=== PATIENT | male | born 1975 | race Hispanic/Latino ===

== ENCOUNTER 2021-08-22 01:51 | Inpatient (IN) | payer SELFPAY ==
[2021-08-22] MEDS ORDERED: MORPHINE 4 MG/ML SYR ONE (02:33)
[2021-08-22] MEDS ORDERED: METRONIDAZOLE 500mg IVPB 500 MG/100 ML BAG IV ONE ×2 (02:33→09:17)
[2021-08-22] MEDS ORDERED: CIPROFLOXACIN 400mg IV 400 MG/200 ML BAG IV ONE ×2 (02:33→07:17)
[2021-08-22] MEDS ORDERED: ONDANSETRON 4 MG/2 ML VIAL ONE (02:34)
[2021-08-22] MEDS ORDERED: FAMOTIDINE 20 MG/2 ML VIAL IV ONE (02:34)
[2021-08-22] MEDS ORDERED: NA CHLORIDE 0.9% 1,000 ML ONE (02:34)
[2021-08-22 02:43] LABS: Urine Blood Trace-intact (Negative); Urine Glucose Negative (Negative); Urine Protein Negative (Negative); Urine pH 6.5 (5.0-7.0)
[2021-08-22 02:46] LABS: Absolute Lymphocytes (CBC) 3.3 K/uL (0.7-4.9); Hematocrit 42.1 % (39.6-49.0); Lymphocytes % 23.8 % (15.3-44.8); MPV 8.5 fL (7.6-11.3); RBC Red Blood Cell Count 4.65 M/uL (4.33-5.43)
[2021-08-22 03:04] LABS: Albumin 3.7 g/dL (3.4-5.0); Bilirubin Total 0.2 mg/dL (0.2-1.0); Potassium 3.7 mmol/L (3.5-5.1); Protein, Total 7.9 g/dL (6.4-8.2)
[2021-08-22] MEDS ORDERED: CEFTRIAXONE 2000 MG/VIAL ONE (04:20)
[2021-08-22] MEDS ORDERED: HYDROMORPHONE HCL 1 MG/ML INJ ONE ×2 (04:27→12:25)
--- NOTE | 2021-08-22 04:36 | ER ---
Nurse's Notes [facility] Name: Urban Robles Age: 46 yrs Sex: Male : 1975 Arrival Date: 08/22/2021 Time: 01:52 Bed 18 Private MD: Diagnosis: Abdominal tenderness-RIGHT SIDED;Diverticulitis of intestine, part unspecified, without perforation or abscess without bleeding-ACUTE CECAL DIVERTICULITIS;Elevated white blood cell count Presentation: 08/22 02:01 Chief complaint: Patient states: he is having abdominal pain and distention x 1 week pt bb denies vomiting or diarrhea. Coronavirus screen: At this time, the client does not indicate any symptoms associated with coronavirus-19. Ebola Screen: No symptoms or risks identified at this time. Initial Sepsis Screen: Does the patient meet any 2 criteria? No. Patient's initial sepsis screen is negative. Does the patient have a suspected source of infection? No. Patient's initial sepsis screen is negative. Risk Assessment: Do you want to hurt yourself or someone else? Patient reports no desire to harm self or others. Onset of symptoms was August 15, 2021. 02:01 Method Of Arrival: Ambulatory bb 02:01 Acuity: GUSTAVO 3 bb Historical: - Allergies: 02:03 No Known Allergies; bb - Home Meds: 02:03 None [Active]; bb - PMHx: 02:03 None; bb - PSHx: 02:03 Appendectomy; bb - Immunization history:: Client reports receiving the 2nd dose of the Covid vaccine, does not know which vaccine he received. - Social history:: Smoking status: Patient reports the use of cigarette tobacco products, Patient/guardian denies using alcohol. - Family history:: not pertinent. Screenin:12 Abuse screen: Denies threats or abuse. Denies injuries from another. Nutritional lg3 screening: No deficits noted. Tuberculosis screening: No symptoms or risk factors identified. Fall Risk None identified. Assessment: 03:12 General: Appears in no apparent distress. uncomfortable, Behavior is calm, cooperative. lg3 Pain: Complains of pain in right lower quadrant and right upper quadrant Pain radiates to epigastric area. Neuro: No deficits noted. Level of Consciousness is awake, alert, obeys commands, Oriented to person, place, time, situation. Cardiovascular: No deficits noted. Denies chest pain, shortness of breath, Capillary refill < 3 seconds Clubbing of nail beds is absent JVD is absent Patient's skin is warm and dry. Respiratory: No deficits noted. Airway is patent Trachea midline Respiratory effort is even, unlabored, Respiratory pattern is regular, symmetrical. GI: Bowel sounds hyperactive in right upper quadrant, left upper quadrant, right lower quadrant and left lower quadrant Abd is soft X 4 quads Abdomen is tender to palpation in right upper quadrant and right lower quadrant Reports lower abdominal pain, upper abdominal pain, bloating, cramping, epigastric pain. : No deficits noted. No signs and/or symptoms were reported regarding the genitourinary system. EENT: No deficits noted. No signs and/or symptoms were reported regarding the EENT system. Derm: No deficits noted. No signs and/or symptoms reported regarding the dermatologic system. Skin is intact, is healthy with good turgor, Skin is dry, Skin is pink, warm \\T\\ dry. Musculoskeletal: No deficits noted. No signs and/or symptoms reported regarding the musculoskeletal system. Circulation, motion, and sensation intact. Range of motion: intact in all extremities. 04:09 Reassessment: Patient appears in no apparent distress at this time. No changes from lg3 previously documented assessment. Patient and/or family updated on plan of care and expected duration. Pain level reassessed. Patient is alert, oriented x 3, equal unlabored respirations, skin warm/dry/pink. Patient states symptoms have improved. 05:35 Reassessment: Patient appears in no apparent distress at this time. No changes from lg3 previously documented assessment. 06:57 Reassessment: Patient appears in no apparent distress at this time. No changes from lg3 previously documented assessment. Patient and/or family updated on plan of care and expected duration. Pain level reassessed. Patient is alert, oriented x 3, equal unlabored respirations, skin warm/dry/pink. pt quietly resting with family at bedside. Vital Signs: 02:01 BP 127 / 89; Pulse 79; Resp 18 S; Temp 97.6(O); Pulse Ox 95% on R/A; Weight 113.4 kg bb (R); Height 5 ft. 3 in. (160.02 cm) (R); Pain 10/10; 03:12 BP 126 / 78; Pulse 82; Resp 17 S; Pulse Ox 98% on R/A; lg3 04:10 BP 124 / 79; Pulse 80; Resp 16; Pulse Ox 98% on R/A; lg3 02:01 Body Mass Index 44.29 (113.40 kg, 160.02 cm) ED Course: 01:52 Patient arrived in ED. mr 01:58 Minh Brooks MD is Attending Physician. [facility] 02:03 Triage completed. bb 02:03 Arm band placed on Patient placed in an exam room, on a stretcher, on pulse oximetry. bb Family accompanied patient. 02:19 Ana M Tinajero, RN is Primary Nurse. lg3 02:27 CBC with Diff Sent. mw2 02:27 CMP Sent. mw2 02:27 Lipase Sent. mw2 02:27 Inserted saline lock: 20 gauge in right antecubital area, using aseptic technique. sm5 Blood collected. 02:44 Urine Culture Sent. lg3 02:49 CBC with Diff Sent. lg3 02:49 CMP Sent. lg3 02:49 Lipase Sent. lg3 02:58 Abdomen Limited US In Process Unspecified. EDMS 03:00 Chest Single View XRAY In Process Unspecified. EDMS 03:12 Patient has correct armband on for positive identification. Bed in low position. Call lg3 light in reach. Side rails up X 1. Pulse ox on. NIBP on. Door closed. Noise minimized. Warm blanket given. Turned to right side. Family accompanied patient. 03:44 CT Abd/Pelvis - IV Contrast Only In Process Unspecified. EDMS 04:34 Jaime Fay MD is Hospitalizing Provider. [facility] 04:48 COVID-19/FLU A+B (Document "Date of Onset" if Symptomatic) Sent. lg3 Administered Medications: 02:44 Drug: morphine 4 mg Route: IVP; Site: right antecubital; lg3 02:45 Follow up: Response: No adverse reaction; RASS: Alert and Calm (0) lg3 02:44 Drug: Flagyl (metroNIDAZOLE) 500 mg Volume: 100 ml; Route: IVPB; Rate: 200 ml/hr; lg3 Infused Over: 30 mins; Site: right antecubital; 02:44 Follow up: Response: No adverse reaction; IV Status: Completed infusion; IV Intake: lg3 100ml 02:49 Drug: Pepcid (famotidine) 20 mg Route: IVP; Site: right antecubital; lg3 02:49 Follow up: Response: No adverse reaction lg3 02:49 Drug: Zofran (Ondansetron) 4 mg Route: IVP; Site: right antecubital; lg3 02:49 Follow up: Response: No adverse reaction lg3 03:06 Drug: Ciprofloxacin 400 mg Volume: 200 ml; Route: IVPB; Infused Over: 60 mins; Site: lg3 right antecubital; 03:34 Drug: NS 0.9% 1000 ml Route: IV; Rate: 1 bolus; Site: right antecubital; lg3 04:26 Drug: Rocephin (cefTRIAXone) 2 grams Route: IV; Rate: per protocol; Site: right lg3 antecubital; 06:58 Follow up: Response: No adverse reaction; IV Status: Completed infusion; IV Intake: 05cpck1 04:26 Drug: Dilaudid (HYDROmorphone) 1 mg Route: IVP; Site: right antecubital; lg3 04:26 Follow up: Response: No adverse reaction; RASS: Alert and Calm (0) lg3 Intake: 02:44 IV: 100ml; Total: 100ml. lg3 06:58 IV: 20ml; Total: 120ml. lg3 Outcome: 04:35 Decision to Hospitalize by Provider. phu 16:32 Admitted to Med/surg accompanied by nurse, via wheelchair, room 212. ll1 16:32 Condition: stable ll1 16:32 Instructed on the need for admit. 16:33 Patient left the ED. Signatures: Dispatcher [employer] EDMS Minh Brooks MD MD cha Rivera Elaine mr Anu Bhatt RN RN bb Aditi Ruiz RN RN Dano Ding mw2 Ana M Tinajero RN RN lg3 Lacey Arteaga RN RN ll1 Justina Santa RN RN sm5 Corrections: (The following items were deleted from the chart) 04:10 03:12 BP 126 / ???; Pulse 82bpm; Resp 17bpm; Spontaneous; Pulse Ox 98% RA; lg3 lg3
--- NOTE | 2021-08-22 04:37 | EDPHYS ---
Physician Documentation [facility] Name: Urban Robles Age: 46 yrs Sex: Male : 1975 Arrival Date: 08/22/2021 Time: 01:52 Bed 18 Private MD: ED Physician Minh Brooks HPI: 08/22 02:17 This 46 yrs old Male presents to ER via Ambulatory with complaints of phu Abdominal Pain, Abdominal Swelling. 02:17 The patient presents with abdominal pain in the upper abdomen, in the right upper phu quadrant, right lower quadrant, abdominal distention in the upper abdomen, in the lower abdomen. Onset: The symptoms/episode began/occurred 3 day(s) ago. The symptoms do not radiate. Associated signs and symptoms: none. The symptoms are described as constant, crampy. Modifying factors: The symptoms are alleviated by nothing, the symptoms are aggravated by movement, pressure. Severity of pain: At its worst the pain was moderate in the emergency department the pain is unchanged. The patient has not experienced similar symptoms in the past. Historical: - Allergies: 02:03 No Known Allergies; bb - Home Meds: 02:03 None [Active]; bb - PMHx: 02:03 None; bb - PSHx: 02:03 Appendectomy; bb - Immunization history:: Client reports receiving the 2nd dose of the Covid vaccine, does not know which vaccine he received. - Social history:: Smoking status: Patient reports the use of cigarette tobacco products, Patient/guardian denies using alcohol. - Family history:: not pertinent. ROS: 02:17 Constitutional: Negative for fever, chills, and weight loss, Eyes: Negative for injury, phu pain, redness, and discharge, ENT: Negative for injury, pain, and discharge, Neck: Negative for injury, pain, and swelling, Cardiovascular: Negative for chest pain, palpitations, and edema, Respiratory: Negative for shortness of breath, cough, wheezing, and pleuritic chest pain, Back: Negative for injury and pain, : Negative for injury, bleeding, discharge, and swelling, MS/Extremity: Negative for injury and deformity, Skin: Negative for injury, rash, and discoloration, Neuro: Negative for headache, weakness, numbness, tingling, and seizure, Psych: Negative for depression, anxiety, suicide ideation, homicidal ideation, and hallucinations, Allergy/Immunology: Negative for hives, rash, and allergies, Endocrine: Negative for neck swelling, polydipsia, polyuria, polyphagia, and marked weight changes, Hematologic/Lymphatic: Negative for swollen nodes, abnormal bleeding, and unusual bruising. 02:17 Abdomen/GI: Positive for abdominal pain, of the right upper quadrant and right lower quadrant. Exam: 02:17 Constitutional: This is a well developed, well nourished patient who is awake, alert, phu and in no acute distress. Head/Face: Normocephalic, atraumatic. Eyes: Pupils equal round and reactive to light, extra-ocular motions intact. Lids and lashes normal. Conjunctiva and sclera are non-icteric and not injected. Cornea within normal limits. Periorbital areas with no swelling, redness, or edema. ENT: Nares patent. No nasal discharge, no septal abnormalities noted. Tympanic membranes are normal and external auditory canals are clear. Oropharynx with no redness, swelling, or masses, exudates, or evidence of obstruction, uvula midline. Mucous membranes moist. Neck: Trachea midline, no thyromegaly or masses palpated, and no cervical lymphadenopathy. Supple, full range of motion without nuchal rigidity, or vertebral point tenderness. No Meningismus. Chest/axilla: Normal chest wall appearance and motion. Nontender with no deformity. No lesions are appreciated. Cardiovascular: Regular rate and rhythm with a normal S1 and S2. No gallops, murmurs, or rubs. Normal PMI, no JVD. No pulse deficits. Respiratory: Lungs have equal breath sounds bilaterally, clear to auscultation and percussion. No rales, rhonchi or wheezes noted. No increased work of breathing, no retractions or nasal flaring. Back: No spinal tenderness. No costovertebral tenderness. Full range of motion. Male : Normal genitalia with no discharge or lesions. Skin: Warm, dry with normal turgor. Normal color with no rashes, no lesions, and no evidence of cellulitis. MS/ Extremity: Pulses equal, no cyanosis. Neurovascular intact. Full, normal range of motion. Neuro: Awake and alert, GCS 15, oriented to person, place, time, and situation. Cranial nerves II-XII grossly intact. Motor strength 5/5 in all extremities. Sensory grossly intact. Cerebellar exam normal. Normal gait. Psych: Awake, alert, with orientation to person, place and time. Behavior, mood, and affect are within normal limits. 02:17 Abdomen/GI: Inspection: distension, that is mild, Bowel sounds: normal, Palpation: mild abdominal tenderness, moderate abdominal tenderness, in the right upper quadrant and right lower quadrant, Liver: no appreciated palpable abnormalities, Hernia: not appreciated. Vital Signs: 02:01 BP 127 / 89; Pulse 79; Resp 18 S; Temp 97.6(O); Pulse Ox 95% on R/A; Weight 113.4 kg bb (R); Height 5 ft. 3 in. (160.02 cm) (R); Pain 10/10; 03:12 BP 126 / 78; Pulse 82; Resp 17 S; Pulse Ox 98% on R/A; lg3 04:10 BP 124 / 79; Pulse 80; Resp 16; Pulse Ox 98% on R/A; lg3 02:01 Body Mass Index 44.29 (113.40 kg, 160.02 cm) MDM: 01:58 Patient medically screened. [facility] 02:20 Differential diagnosis: cholecystitis, Cholelithiasis, diverticulitis, gastritis, phu non-specific abd pain, pancreatitis, Peptic Ulcer Disease, Perf. Duodenal Ulcer, Pyelonephritis, Ureterolithiasis, urinary tract infection. Data reviewed: vital signs, nurses notes, lab test result(s), radiologic studies, CT scan, plain films. Data interpreted: classroom monitor: rate is 79 beats/min, rhythm is regular, Pulse oximetry: on room air is 95 %. Test interpretation: by ED physician or midlevel provider: plain radiologic studies. Counseling: I had a detailed discussion with the patient and/or guardian regarding: the historical points, exam findings, and any diagnostic results supporting the discharge/admit diagnosis, lab results, radiology results. 08/22 02:17 Order name: CBC with Diff; Complete Time: 02:54 phu 08/22 02:17 Order name: CMP; Complete Time: 03:08 phu 08/22 02:17 Order name: Lipase; Complete Time: 03:08 phu 08/22 02:17 Order name: Urine Culture phu 08/22 02:43 Order name: Urine Dipstick-Ancillary; Complete Time: 02:54 EDMS 08/22 04:39 Order name: COVID-19/FLU A+B (Document "Date of Onset" if Symptomatic); Complete Time: lg3 06:04 08/22 02:17 Order name: Abdomen Limited US [facility] 08/22 02:17 Order name: CT Abd/Pelvis - IV Contrast Only [facility] 08/22 02:17 Order name: Chest Single View XRAY [facility] 08/22 02:17 Order name: IV Saline Lock; Complete Time: 02: [facility] 08/22 02:17 Order name: Labs collected and sent; Complete Time: 02: [facility] 08/22 02:17 Order name: Urine Dipstick-Ancillary (obtain specimen); Complete Time: 02:44 [facility] Administered Medications: 02:44 Drug: morphine 4 mg Route: IVP; Site: right antecubital; lg3 02:45 Follow up: Response: No adverse reaction; RASS: Alert and Calm (0) lg3 02:44 Drug: Flagyl (metroNIDAZOLE) 500 mg Volume: 100 ml; Route: IVPB; Rate: 200 ml/hr; lg3 Infused Over: 30 mins; Site: right antecubital; 02:44 Follow up: Response: No adverse reaction; IV Status: Completed infusion; IV Intake: lg3 100ml 02:49 Drug: Pepcid (famotidine) 20 mg Route: IVP; Site: right antecubital; lg3 02:49 Follow up: Response: No adverse reaction lg3 02:49 Drug: Zofran (Ondansetron) 4 mg Route: IVP; Site: right antecubital; lg3 02:49 Follow up: Response: No adverse reaction lg3 03:06 Drug: Ciprofloxacin 400 mg Volume: 200 ml; Route: IVPB; Infused Over: 60 mins; Site: lg3 right antecubital; 03:34 Drug: NS 0.9% 1000 ml Route: IV; Rate: 1 bolus; Site: right antecubital; lg3 04:26 Drug: Rocephin (cefTRIAXone) 2 grams Route: IV; Rate: per protocol; Site: right lg3 antecubital; 06:58 Follow up: Response: No adverse reaction; IV Status: Completed infusion; IV Intake: [id number] 04:26 Drug: Dilaudid (HYDROmorphone) 1 mg Route: IVP; Site: right antecubital; lg3 04:26 Follow up: Response: No adverse reaction; RASS: Alert and Calm (0) lg3 Disposition Summary: 08/22/21 04:35 Hospitalization Ordered Hospitalization Status: Inpatient Admission phu Provider: Jaime Fay cha Condition: Fair phu Problem: new phu Symptoms: have improved phu Bed/Room Type: Standard phu Location: Telemetry/MedSurg (Inpatient)(08/22/21 13:41) bd Room Assignment: 212(08/22/21 13:41) bd Diagnosis - Abdominal tenderness - RIGHT SIDED phu - Diverticulitis of intestine, part unspecified, without perforation or abscess phu without bleeding - ACUTE CECAL DIVERTICULITIS - Elevated white blood cell count phu Discharge Instructions: - Discharge Summary Sheet ph Forms: - Medication Reconciliation Form phu - SBAR form phu - Family Work Release ph Signatures: Dispatcher [employer] EDLinda Haines Martha, RN RN mw Anderson, Corey, MD MD cha Ballard, Brenda, RN RN bb Attema, Lee, MID TEACHER-C MID TEACHER-Cla1 Ana M Tinajero RN RN lg3 Corrections: (The following items were deleted from the chart) 05:45 04:35 Telemetry/MedSurg (Inpatient) phu mw 05:45 04:35 phu mw 13:41 05:45 BR ER HOLD mw bd 13:41 05:45 ERHOLD- mw bd
--- NOTE | 2021-08-22 04:50 | P.HP ---
Certification for Inpatient Patient admitted to: Inpatient With expected LOS: >2 Midnights Patient will require the following post-hospital care: None Practitioner: I am a practitioner with admitting privileges, knowledge of patient current condition, hospital course, and medical plan of care. Services: Services provided to patient in accordance with Admission requirements found in Title 42 Section 412.3 of the Code of Federal Regulations <FarrahSyd Aden - Last Filed: 08/22/21 04:47> Patient History Date of Service: 08/22/21 Reason for admission: Acute diverticulitis History of Present Illness: 46-year-old male with no significant past medical history presents emergency department with 1 week of right upper/lower abdominal pain. Patient was evaluated the emergency department his labs were significant for a moderate leukocytosis and CT revealed acute cecal diverticulitis. Patient with significant abdominal tenderness on exam requiring multiple rounds of IV pain medications ED provider wishes to admit for further evaluation and management of acute cecal diverticulitis. - Past Medical/Surgical History Past Medical History: Patient denies medical history -: Appendectomy Psychosocial/ Personal History: Patient lives at home with his family - Family History Family History: Reviewed- Non-Contributory - Social History Smoking Status: Never smoker Alcohol use: No CD- Drugs: No Caffeine use: Yes Place of Residence: Home <Syd Yan - Last Filed: 08/22/21 04:47> Date of Service: 08/22/21 <Jaime Fay - Last Filed: 08/22/21 17:58> Review of Systems 10-point ROS is otherwise unremarkable Gastrointestinal: Abdominal Pain <Syd Yan - Last Filed: 08/22/21 04:47> Physical Examination - Physical Exam General: Alert, In no apparent distress, Oriented x3 HEENT: Atraumatic, PERRLA, Mucous membr. moist/pink, EOMI, Sclerae nonicteric Neck: Supple, 2+ carotid pulse no bruit, No LAD, Without JVD or thyroid abnormality Respiratory: Clear to auscultation bilaterally, Normal air movement Cardiovascular: Regular rate/rhythm, Normal S1 S2 Gastrointestinal: Normal bowel sounds, Tenderness (Moderate right upper and lower quadrant abdominal tenderness) Musculoskeletal: No tenderness Integumentary: No rashes Neurological: Normal gait, Normal speech, Normal strength at 5/5 x4 extr, Normal tone, Normal affect Lymphatics: No axilla or inguinal lymphadenopathy - Studies Laboratory Data (last 24 hrs) 08/22/21 02:26: Sodium 138, Potassium 3.7, BUN 17, Creatinine 0.97, Glucose 107 H, Total Bilirubin 0.2, AST 20, ALT 57, Alkaline Phosphatase 107, Lipase 130 08/22/21 02:26: WBC 13.8 H, Hgb 14.6, Hct 42.1, Plt Count 324 <Syd Yan - Last Filed: 08/22/21 04:47> - Studies Laboratory Data (last 24 hrs) 08/22/21 02:26: Sodium 138, Potassium 3.7, BUN 17, Creatinine 0.97, Glucose 107 H, Total Bilirubin 0.2, AST 20, ALT 57, Alkaline Phosphatase 107, Lipase 130 08/22/21 02:26: WBC 13.8 H, Hgb 14.6, Hct 42.1, Plt Count 324 <Jaime Fay - Last Filed: 08/22/21 17:58> Assessment and Plan - Plan Assessment: Acute cecal diverticulitis without perforation, hemorrhage or abscess Plan: Acute cecal diverticulitis without perforation, hemorrhage or abscess: Continue IV antibiotics, n.p.o. at this time allow for bowel rest, IV fluids as needed pain medications and antiemetics. Advance diet as tolerated patient reports symptoms for 1 week so far moderate abdominal tenderness noted serial abdominal exams, consult surgery for worsening. DVT PPX: Lovenox Code status: Full Discharge Plan: Home Plan to discharge in: 72 Hours - Advance Directives Does patient have a Living Will: No Does patient have a Durable POA for Healthcare: No - Code Status/Comfort Care Code Status Assessed: Yes (Full code) Critical Care: No Time Spent Managing Pts Care (In Minutes): 55 <Syd Yan - Last Filed: 08/22/21 04:47> - Plan Patient seen and examined this morning on rounds. Abd pain slightly improved with dilaudid, still very tender. continue IV antibiotics, NPO, IVF general surgery consulted.. serial abdominal exams <Jaime Fay - Last Filed: 08/22/21 17:58>
[2021-08-22 05:48] LABS: SARS-COV-2 RT PCR NEGATIVE (NEGATIVE)
[2021-08-22] MEDS: D5 0.45 NS 1,000 ML IV SCH ×2 (07:17→16:29)
[2021-08-22] MEDS ORDERED: ONDANSETRON 4 MG/2 ML VIAL IV PRN (07:17)
[2021-08-22] MEDS: HYDROMORPHONE HCL 1 MG/ML INJ IV PRN ×4 (07:29→20:49)
[2021-08-22] MEDS: ENOXAPARIN 40 MG/0.4 ML SQ SCH (09:00)
[2021-08-22] MEDS: METRONIDAZOLE 500mg IVPB 500 MG/100 ML BAG IV SCH ×2 (09:00→16:28)
[2021-08-22] MEDS ORDERED: ENOXAPARIN 40 MG/0.4 ML SQ ONE (09:16)
--- NOTE | 2021-08-22 12:32 | RAD REPORT ---
EXAM DESCRIPTION: CT - Abdomen Pelvis W Contrast - 08/22/2021 6:57 am CLINICAL HISTORY: Abdominal pain, acute, nonlocalized COMPARISON: None. TECHNIQUE: CT ABDOMEN PELVIS WITH IV CONTRAST on 08/22/2021 2:17 AM CDT This exam was performed according to our departmental dose-optimization program, which includes autom ated exposure control, adjustment of the mA and/or kV according to patient size and/or use of iterati ve reconstruction technique. FINDINGS: Lower lungs are clear. Abdomen: Liver is fatty in attenuation. There is no biliary dilatation. Gallbladder is normal in appe arance. The pancreas and spleen are normal in appearance. The adrenal glands and kidneys are unremark able. Abdominal aorta is normal in course and caliber without aneurysm. There is no free air. There is no r etroperitoneal adenopathy. Pelvis: There are several diverticula within the cecum with inflammation surrounding an anteriorly pl aced diverticulum best seen on axial image 50. Urinary bladder is unremarkable. There is no free flui d. Appendix is normal. Skeleton: There are no acute osseous findings. No suspicious bony lesions. IMPRESSION: Acute cecal diverticulitis. Electronically signed by: Vern Estes MD 08/22/2021 4:28 AM CDT Due to temporary technical issues with the PACS/Fluency reporting system, reports are being signed by the in house radiologists without review as a courtesy to insure prompt reporting. The interpreting radiologist is fully responsible for the content of the report.
--- NOTE | 2021-08-22 12:33 | RAD REPORT ---
EXAM DESCRIPTION: RAD - Chest Single View - 08/22/2021 2:58 am CLINICAL HISTORY: 46 years, Male, ABDOMINAL DISTENTION COMPARISON: None. FINDINGS: Single view of the chest was obtained portable. No prior films are available for compariso n. The cardiomediastinal silhouette demonstrate to be unremarkable. The heart is not enlarged. The thoracic aorta is unremarkable. Costophrenic angles are sharp. No areas of consolidation or masses are seen. The rest of the soft tissue and bony structures demonstrate to be unremarkable. IMPRESSION: No acute cardiopulmonary disease. Electronically signed by: Bob Arechiga MD 08/22/2021 3:16 AM CDT Due to temporary technical issues with the PACS/Fluency reporting system, reports are being signed by the in house radiologists without review as a courtesy to insure prompt reporting. The interpreting radiologist is fully responsible for the content of the report.
--- NOTE | 2021-08-22 12:59 | RAD REPORT ---
EXAM DESCRIPTION: US - Abdomen Exam Limited - 08/22/2021 4:15 am CLINICAL HISTORY: 46 years, Male, ABD PAIN COMPARISON: None. TECHNIQUE: Utilizing a curved array transducer, real-time ultrasound evaluation of the abdominal vis cera was performed. Color Doppler imaging was used to assess vascular flow. FINDINGS: The liver, pancreas, right kidney were not imaged. The gallbladder demonstrate to be contracted. No evidence for cholelithiasis. No pericholecystic fl uid and or wall thickening was identified. Negative ultrasonographic Crenshaw sign. The common bile slick t measures 2.7 mm. No intra or extrahepatic biliary duct dilatation was identified. IMPRESSION: Contracted gallbladder without evidence of cholelithiasis. Electronically signed by: Bob Arechiga MD 08/22/2021 3:15 AM CDT Due to temporary technical issues with the PACS/Fluency reporting system, reports are being signed by the in house radiologists without review as a courtesy to insure prompt reporting. The interpreting radiologist is fully responsible for the content of the report.
[2021-08-22] MEDS ORDERED: D5 0.45 NS 1,000 ML IV ONE (16:05)
[2021-08-22 17:24] VITALS: BMI 30.2
[2021-08-23] MEDS: METRONIDAZOLE 500mg IVPB 500 MG/100 ML BAG IV SCH ×2 (00:33→08:06)
[2021-08-23] MEDS: D5 0.45 NS 1,000 ML IV SCH ×4 (00:33→23:17)
[2021-08-23 05:40] LABS: Absolute Lymphocytes (CBC) 2.1 K/uL (0.7-4.9); Hematocrit 41.4 % (39.6-49.0); Lymphocytes % 25.6 % (15.3-44.8); MPV 8.4 fL (7.6-11.3); RBC Red Blood Cell Count 4.48 M/uL (4.33-5.43)
[2021-08-23 06:00] LABS: ALT/SGPT 42 U/L (12-78); AST/SGOT 16 U/L (15-37); Albumin 3.4 g/dL (3.4-5.0); Alkaline Phosphatase 97 U/L (45-117); BUN Blood Urea Nitrogen 6 mg/dL (7-18); Bicarbonate 25 mmol/L (21-32); Bilirubin Total 0.4 mg/dL (0.2-1.0); Glucose Level 114 mg/dL (74-106); Potassium 3.6 mmol/L (3.5-5.1); Protein, Total 7.4 g/dL (6.4-8.2); Sodium Level 139 mmol/L (136-145)
--- NOTE | 2021-08-23 06:23 | P.PN ---
Date of Service: 08/23/21 Subjective: pain improved, no nausea/vomiting hungry, +flatus, no BM ROS: 10 point ROS as noted above, otherwise negative Physical exam GEN: Alert, oriented, NAD HEENT: Normal conjunctiva, sclera anicteric CV: Regular rate and rhythm, no edema Pulm: Nonlabored respirations on room air ABD: Soft, mild RLQ / lower abdominal tenderness, no rebound Neuro: Normal speech, normal affect Problem List Acute cecal diverticulitis without perforation, hemorrhage or abscess pain improving, states he is thirsty/hungry no nausea/vomiting afebrile general surgery following advance to clear liquids today continue serial abd exams possibly advance diet tomorrow VTE: lovenox Code: full Dispo: anticipate dc home in 1-2 days, pending improvement / tolerating diet Time Spent Managing Pts Care (In Minutes): 35
[2021-08-23] MEDS ORDERED: KCL 20 MEQ/100 mL IVPB 20 MEQ/100 ML BAG IV SCH (08:00)
[2021-08-23] MEDS: HYDROMORPHONE HCL 1 MG/ML INJ IV PRN (08:04)
[2021-08-23] MEDS ORDERED: POTASSIUM CL SA 10 MEQ TAB PO ONE (09:34)
[2021-08-23] MEDS: ENOXAPARIN 40 MG/0.4 ML SQ SCH (09:36)
[2021-08-23] MEDS ORDERED: ACETAMINOPHEN 500 MG TAB PO PRN (12:14)
[2021-08-23] MEDS: PIPER TAZO 3.375 GM in NA CHLORIDE 0.9% 100 ML IV SCH ×2 (12:15→20:34)
--- NOTE | 2021-08-23 18:39 | P.PN ---
Subjective Date of Service: 08/23/21 Chief Complaint: Acute diverticulitis Subjective: Improving (pain free now, passing gas, no nausea, no emesis) Physical Examination - Vital Signs Temperature: 98.2 F Blood Pressure: 108/68 Pulse: 73 Respirations: 19 Pulse Ox (%): 98 - Physical Exam General: Alert, In no apparent distress, Cooperative Gastrointestinal: Soft and benign, Non-distended, No ascites, No tenderness, No masses, No rebound, No guarding - Studies Microbiology Data (last 24 hrs): 08/22/21 02:40 Clean Catch Urine Dumas Count - Final No growth. 08/22/21 02:40 Clean Catch Urine - Final No growth. Assessment And Plan - Current Problems (Diagnosis) (1) Diverticulitis large intestine Current Visit: Yes Status: Acute Plan: - Zosyn - Serial Exams - Start clear liquid diet - ambulate - continue medical management - will need colonoscopy as outpatient, reviewed with patient and with [place] speaking staff Qualifiers: Diverticulitis bleeding: without bleeding Diverticulitis complication: without perforation or abscess Qualified Code(s): K57.32 - Diverticulitis of large intestine without perforation or abscess without bleeding
[2021-08-23 21:59] VITALS: O2SAT 97
[2021-08-24] MEDS: D5 0.45 NS 1,000 ML IV SCH (01:45)
[2021-08-24] MEDS: PIPER TAZO 3.375 GM in NA CHLORIDE 0.9% 100 ML IV SCH (04:00)
[2021-08-24 04:01] LABS: Absolute Lymphocytes (CBC) 2.5 K/uL (0.7-4.9); Hematocrit 40.7 % (39.6-49.0); Lymphocytes % 35.1 % (15.3-44.8); MPV 8.4 fL (7.6-11.3); RBC Red Blood Cell Count 4.44 M/uL (4.33-5.43)
[2021-08-24 04:17] LABS: Albumin 3.4 g/dL (3.4-5.0); Bilirubin Total 0.4 mg/dL (0.2-1.0); Potassium 3.7 mmol/L (3.5-5.1); Protein, Total 7.4 g/dL (6.4-8.2)
[2021-08-24] MEDS ORDERED: PIPERACIL/TAZO 3.375 GM VIAL IV ONE (05:11)
[2021-08-24] MEDS ORDERED: NA CHLORIDE 0.9% 100 ML ONE (05:14)
[2021-08-24] MEDS ORDERED: POTASSIUM CL SA 10 MEQ TAB PO ONE (09:00)
[2021-08-24 09:07] VITALS: BP 104/64; TEMP 98.2
[2021-08-24] MEDS: ENOXAPARIN 40 MG/0.4 ML SQ SCH (09:17)
[2021-08-24] MEDS ORDERED: AMOX/K CLAV 875 MG TAB PO SCH (10:00)
--- NOTE | 2021-08-24 20:54 | P.DS ---
Admission Date: 08/22/21 Discharge Date: 08/24/21 Disposition: ROUTINE DISCHARGE Discharge Condition: GOOD Reason for Admission: Acute diverticulitis Consultations: General Surgery - Dr. Artis Procedures: CT Abd: FINDINGS: Lower lungs are clear. Abdomen: Liver is fatty in attenuation. There is no biliary dilatation. Gallbladder is normal in appearance. The pancreas and spleen are normal in appearance. The adrenal glands and kidneys are unremarkable. Abdominal aorta is normal in course and caliber without aneurysm. There is no free air. There is no retroperitoneal adenopathy. Pelvis: There are several diverticula within the cecum with inflammation surrounding an anteriorly placed diverticulum best seen on axial image 50. Urinary bladder is unremarkable. There is no free fluid. Appendix is normal. Skeleton: There are no acute osseous findings. No suspicious bony lesions. IMPRESSION: Acute cecal diverticulitis. Problem List Acute cecal diverticulitis without perforation, hemorrhage or abscess Brief History of Present Illness: 46yo M, with no significant PMH presented to ED with ~1 week of lower abdominal pain. Evaluation in the ED noted leukocytosis and CT consistent with acute cecal diverticulitis. Hospital Course: Patient was found to have acute diverticulitis. Improved with bowel rest, IV fluids, and antibiotics. Diet was slowly advanced and on day of discharge he tolerated soft GI diet. Discharged home to complete 2 weeks of antibiotics. Follow up with Dr. Artis in ~2 weeks. Call his office to schedule appointment. You will need a colonoscopy in the near future - to arrange with Dr. Artis. Continue with mild diet, liquids / soft foods. Slowly advance as tolerated. Vital Signs/Physical Exam: Temp Pulse Resp BP Pulse Ox 98.2 F 60 18 104/64 97 08/24/21 08:00 08/24/21 08:00 08/24/21 08:00 08/24/21 08:00 08/24/21 08:00 Physical exam GEN: Alert, oriented, NAD HEENT: Normal conjunctiva, sclera anicteric CV: Regular rate and rhythm, no edema Pulm: Nonlabored respirations on room air ABD: Soft, minimal tenderness in RLQ Neuro: Normal speech, normal affect Laboratory Data at Discharge: WBC 7.2 K/uL (4.3-10.9) 08/24/21 03:37 Hgb 14.2 g/dL (13.6-17.9) 08/24/21 03:37 Hct 40.7 % (39.6-49.0) 08/24/21 03:37 Plt Count 309 K/uL (152-406) 08/24/21 03:37 Sodium 139 mmol/L (136-145) 08/24/21 03:37 Potassium 3.7 mmol/L (3.5-5.1) 08/24/21 03:37 BUN 7 mg/dL (7-18) 08/24/21 03:37 Creatinine 0.99 mg/dL (0.55-1.3) 08/24/21 03:37 Glucose 117 mg/dL (74-106) H 08/24/21 03:37 Total Bilirubin 0.4 mg/dL (0.2-1.0) 08/24/21 03:37 AST 15 U/L (15-37) 08/24/21 03:37 ALT 41 U/L (12-78) 08/24/21 03:37 Alkaline Phosphatase 96 U/L (45-117) 08/24/21 03:37 Lipase 130 U/L (73-393) 08/22/21 02:26 Home Medications: Amox/Clavulanate [Augmentin 875-125 Tab] 875 mg PO BID 12 Days #24 tab 08/24/21 Hydrocodone 5/APAP 325 [[place] 5/325] 1 tab PO Q8H PRN #10 tab 08/24/21 Ondansetron [Zofran] 4 mg PO Q6H PRN #10 tab 08/24/21 New Medications: Amox/Clavulanate [Augmentin 875-125 Tab] 875 mg PO BID 12 Days #24 tab Hydrocodone 5/APAP 325 [[place] 5/325] 1 tab PO Q8H PRN #10 tab PRN Reason: Pain Ondansetron [Zofran] 4 mg PO Q6H PRN #10 tab PRN Reason: Nausea / Vomiting Followup: Param Artis MD [ACTIVE - CAN ADMIT] - (Call to schedule appointment) Time spent managing pt's care (in minutes): 45
== END 2021-08-24 09:50 | disposition home or self-care (01) | DRG 392 ==
LOC: ER 01:51 → ERHOLD 04:44 → 2ND 16:01
PROVIDERS: ADMIT Hospitalist; ATTEND Hospitalist
DX: K57.32 Diverticulitis of large intestine without perforation or abscess without bleeding (principal); Z20.822 Contact with and (suspected) exposure to COVID-19
CPT/HCPCS: 0240U; 36415; 71045; 74177; 76705; 80053; 81003; 83690; 85025; 87086; 87088; 96365; 96366; 96375; 99285; J0696; J0744; J1170; J1650; J2405; J2543; J3480; J3490; J7030; J7799; Q9967

== ENCOUNTER 2022-09-03 03:24 | Observation (INO) | payer SELFPAY ==
[2022-09-03] MEDS ORDERED: KETOROLAC 30 MG/ML INJ ONE (04:04)
[2022-09-03] MEDS ORDERED: MORPHINE 4 MG/ML SYR ONE ×2 (04:04→06:56)
[2022-09-03] MEDS ORDERED: ASPIRIN 81 MG CHEWABLE TABLET ONE (04:04)
[2022-09-03] MEDS ORDERED: ONDANSETRON 4 MG/2 ML VIAL ONE (04:04)
[2022-09-03 04:14] LABS: Absolute Lymphocytes (CBC) 4.3 K/uL (0.7-4.9); Lymphocytes % 42.9 % (15.3-44.8); MCV 92.5 fL (80-100); MPV 8.6 fL (7.6-11.3); RBC Red Blood Cell Count 4.65 M/uL (4.33-5.43)
[2022-09-03 04:15] LABS: Protime INR 1.02
[2022-09-03 04:28] LABS: ALT/SGPT 60 U/L (16-61); AST/SGOT 22 U/L (15-37); Albumin 3.5 g/dL (3.4-5.0); Alkaline Phosphatase 104 U/L (45-117); BUN Blood Urea Nitrogen 18 mg/dL (7-18); Bicarbonate 24 mEq/L (21-32); Bilirubin Total 0.3 mg/dL (0.2-1.0); Glomerular Filtration Rate 101 ml/min (=/>90); Glucose Level 106 mg/dL (74-106); NT PRO-BNP 7 pg/mL (<125); Potassium 3.9 mEq/L (3.5-5.1); Protein, Total 7.4 g/dL (6.4-8.2); Sodium Level 136 mEq/L (136-145); Troponin High Sensitivity 4.4 pg/mL (<58.9)
[2022-09-03 04:39] LABS: Bilirubin Direct < 0.1 mg/dL (0-0.2)
--- NOTE | 2022-09-03 08:26 | ER ---
Nurse's Notes [facility] Name: Urban Robles Age: 47 yrs Sex: Male : 1975 Arrival Date: 09/03/2022 Time: 03:24 Bed 6 Private MD: Diagnosis: Chest pain, unspecified;Atypical chest pain, pleuritic chest pain Presentation: 09/03 03:42 Chief complaint: Patient states: I have chest pain that gets worse when i exhale that kd3 started yesterday morning. Now i can feel it going down my right arm. Coronavirus screen: Vaccine status:. Ebola Screen: No symptoms or risks identified at this time. Initial Sepsis Screen: Does the patient meet any 2 criteria? No. Patient's initial sepsis screen is negative. Does the patient have a suspected source of infection? No. Patient's initial sepsis screen is negative. Risk Assessment: Do you want to hurt yourself or someone else? Patient reports no desire to harm self or others. Onset of symptoms was September 03, 2022. 03:42 Method Of Arrival: Ambulatory kd3 03:42 Acuity: GUSTAVO 3 kd3 Triage Assessment: 03:44 General: Appears uncomfortable, Behavior is calm, cooperative. Pain: Complains of pain kd3 in anterior aspect of right upper chest. Cardiovascular: Patient's skin is warm and dry. Historical: - Allergies: 03:44 No Known Allergies; kd3 - Home Meds: 07:13 None [Active]; ss - PMHx: 07:13 None; ss - PSHx: 03:44 Appendectomy; kd3 - Immunization history:: Adult Immunizations up to date. - Social history:: Smoking status: unknown. - Family history:: not pertinent. Screenin:13 [facility] ED Fall Risk Assessment (Adult) History of falling in the last 3 months, ss including since admission No falls in past 3 months (0 pts). Abuse screen: Denies threats or abuse. Denies injuries from another. Nutritional screening: No deficits noted. Tuberculosis screening: Has had TB. Assessment: 04:00 General: Appears in no apparent distress. uncomfortable, Behavior is calm, cooperative, jb4 appropriate for age. Pain: Complains of pain in anterior aspect of right upper chest Pain radiates to right lateral anterior chest Pain currently is 6 out of 10 on a pain scale. Neuro: Level of Consciousness is awake, alert, obeys commands, Oriented to person, place, time, situation. Cardiovascular: Patient's skin is warm and dry. Respiratory: Airway is patent Respiratory effort is even, unlabored, Respiratory pattern is regular, symmetrical. GI: No signs and/or symptoms were reported involving the gastrointestinal system. : No signs and/or symptoms were reported regarding the genitourinary system. EENT: No signs and/or symptoms were reported regarding the EENT system. Derm: Skin is intact, Skin is pink, warm \T\ dry. Musculoskeletal: Circulation, motion, and sensation intact. Range of motion: intact in all extremities. 05:00 Reassessment: Patient appears in no apparent distress at this time. Patient and/or jb4 family updated on plan of care and expected duration. Pain level reassessed. Patient is alert, oriented x 3, equal unlabored respirations, skin warm/dry/pink. 07:13 General: Appears in no apparent distress. PT appears comfortable, but when he takes a ss deep breath he grimaces. Updated on plan of care. Awaiting for CT to be obtained. Lights dimmed for comfort upon exiting the room. Pillow and warm blanket given. Pain: Complains of pain in anterior aspect of right upper chest Pain currently is 5 out of 10 on a pain scale. Pain began yesterday Is episodic, Aggravated by deep breathing Noted to be grimacing. Neuro: Level of Consciousness is awake, alert, obeys commands, Oriented to person, place, time, situation. Respiratory: Reports pain with movement pain with respiration Airway is patent Respiratory effort is even, unlabored, Respiratory pattern is regular, symmetrical, Denies cough, shortness of breath. GI: Patient currently denies abdominal pain, diarrhea, nausea, vomiting. Derm: Skin is pink, warm \T\ dry. Musculoskeletal: Circulation, motion, and sensation intact. Range of motion: intact in all extremities, Swelling absent. 10:30 Reassessment: Patient appears in no apparent distress at this time. awaiting CT results ss prior to admission orders per Dr. Rowe. Pt is resting at this time. Eyes closed. RR even and unlabored. 11:54 Reassessment: Patient appears in no apparent distress at this time. No changes from ss previously documented assessment. Pt states he is hungry. Diet ordered at this time. 12:15 Reassessment: Called and spoke with dietary who states they will create a tray for ss patient. 14:15 Reassessment: No tray has yet been given. Called and spoke with dietary again to ask to ss please bring tray. Dietary stated they will get something together and deliver it to Rm 223. 14:19 Reassessment: Report given to, MERARY Gallardo. Vital Signs: 03:42 BP 122 / 87; Pulse 75; Resp 19; Pulse Ox 99% on R/A; kd3 03:50 Temp 98.2(O); Weight 80.74 kg; kd3 05:00 BP 112 / 71; Pulse 60; Resp 16; Pulse Ox 97% on R/A; jb4 06:48 BP 121 / 82; Pulse 55; Resp 16 S; Pulse Ox 99% on R/A; lg3 07:12 BP 120 / 81; Pulse 69; Resp 15; Pulse Ox 100% ; Pain 5/10; ss 08:18 BP 114 / 72; Pulse 57; Resp 15; Pulse Ox 100% on R/A; ss 09:15 BP 116 / 74; Pulse 65; Resp 16; Pulse Ox 98% ; jl7 10:00 BP 114 / 80; Pulse 59; Resp 16; Pulse Ox 96% ; jl7 10:59 BP 105 / 67; Pulse 58; Resp 15; Pulse Ox 97% ; jl7 11:15 BP 105 / 73; Pulse 59; Resp 15; Pulse Ox 99% ; jl7 12:30 BP 106 / 72; Pulse 59; Resp 14; Pulse Ox 97% ; jl7 13:15 BP 110 / 75; Pulse 59; Resp 15; Pulse Ox 98% ; jl7 14:00 BP 113 / 73; Pulse 58; Resp 14; Pulse Ox 94% ; jl7 07:12 Pain Scale: Adult ss ED Course: 03:25 Patient arrived in ED. ag3 03:30 Initial lab(s) drawn, by me, sent to lab. Inserted saline lock: 18 gauge in right jb4 antecubital area, using aseptic technique. Blood collected. Patient maintains SpO2 saturation greater than 95% on room air. 03:44 Triage completed. kd3 03:44 Arm band placed on right wrist. kd3 03:47 Wale Mancera MD is Attending Physician. sp4 06:16 XRAY Chest (1 view) In Process Unspecified. EDMS 07:13 Patient has correct armband on for positive identification. Client placed on continuous ss cardiac and pulse oximetry monitoring. NIBP monitoring applied. 07:31 CT Chest For PE Angio In Process Unspecified. EDMS 08:17 Aditi Ruiz, RN is Primary Nurse. ss 08:25 Jaime Fay MD is Hospitalizing Provider. sp4 14:30 No provider procedures requiring assistance completed. Patient admitted, IV remains in jl7 place. intact, No redness/swelling at site. Administered Medications: 04:08 Drug: Aspirin PO Chewable Tablet 324 mg Route: PO; jb4 06:47 Follow up: Response: No adverse reaction lg3 04:08 Drug: morphine IVP or IV 8 mg Route: IVP; Infused Over: 4 mins; Site: right antecubital;jb4 06:47 Follow up: Response: No adverse reaction lg3 04:08 Drug: Ketorolac IVP 30 mg Route: IVP; Site: right antecubital; jb4 06:47 Follow up: Response: No adverse reaction lg3 04:08 Drug: Ondansetron IVP 4 mg Route: IVP; Site: right antecubital; jb4 06:47 Follow up: Response: No adverse reaction lg3 06:53 Drug: morphine IVP or IV 4 mg Route: IVP; Infused Over: 4 mins; Site: right antecubital;jb4 07:20 Follow up: Response: No adverse reaction; Pain is decreased jl7 Medication: 07:13 VIS not applicable for this client. ss Outcome: 08:26 Decision to Hospitalize by Provider. sp4 14:34 Admitted to Tele accompanied by mita, family with patient, via stretcher, room 223, with chart, Report called to MERARY Gallardo 14:34 Condition: good 14:34 Instructed on the need for admit. 14:35 Patient left the ED. ss Signatures: Dispatcher [employer] EDWV Aditi Ruiz RN RN Jaison Boyd RN RN jb4 Iza Ramsey RN RN jl7 Elba Cao 3 Ana M Tinajero RN RN lg3 Stefanie Turk RN RN magaly3 Wale Mancera MD MD sp4 Corrections: (The following items were deleted from the chart) 14:34 12:30 Reassessment: Called and spoke with dietary who states they will create a tray ss for patient ss
--- NOTE | 2022-09-03 08:26 | EDPHYS ---
Physician Documentation [facility] Name: Urban Robles Age: 47 yrs Sex: Male : 1975 Arrival Date: 09/03/2022 Time: 03:24 Bed 6 Private MD: ED Physician Wale Mancera HPI: 09/03 03:49 This 47 yrs old Male presents to ER via Ambulatory with complaints of Chest sp4 Pain. 03:49 47-year-old male presents with acute onset of right chest wall pain in dermatomal sp4 distribution right back right flank right anterior chest. Patient states pain has intensified since yesterday, unresponsive to Tylenol at home, worse with any deep inspiration. No similar pain history in the past. Historical: - Allergies: 03:44 No Known Allergies; kd3 - Home Meds: 07:13 None [Active]; ss - PMHx: 07:13 None; ss - PSHx: 03:44 Appendectomy; kd3 - Immunization history:: Adult Immunizations up to date. - Social history:: Smoking status: unknown. - Family history:: not pertinent. ROS: 03:49 Constitutional: Negative for fever, chills, and weight loss, Eyes: Negative for injury, sp4 pain, redness, and discharge, ENT: Negative for injury, pain, and discharge, Neck: Negative for injury, pain, and swelling, Cardiovascular: Negative for palpitations, and edema, positive for chest pain Respiratory: Negative for shortness of breath, cough, wheezing, and pleuritic chest pain, Abdomen/GI: Negative for abdominal pain, nausea, vomiting, diarrhea, and constipation, Back: Negative for injury and pain, : Negative for injury, bleeding, discharge, and swelling, MS/Extremity: Negative for injury and deformity, Skin: Negative for injury, rash, and discoloration, Neuro: Negative for headache, weakness, numbness, tingling, and seizure, Psych: Negative for depression, anxiety, Allergy/Immunology: Negative for hives, rash, and allergies Endocrine: Negative for neck swelling, polydipsia, polyuria, polyphagia, and weight changes Hematologic/Lymphatic: Negative for swollen nodes, abnormal bleeding, and unusual bruising Exam: 03:49 Constitutional: This is a well developed, well nourished patient who is awake, alert, sp4 and in no acute distress. Uncomfortable appearing male Head/Face: Normocephalic, atraumatic. Eyes: Pupils equal round and reactive to light, extra-ocular motions intact. Lids and lashes normal. Conjunctiva and sclera are not injected. Cornea within normal limits. Periorbital areas with no swelling, redness, or edema. ENT: Nares patent. No nasal discharge, no septal abnormalities noted. Tympanic membranes are normal and external auditory canals are clear. Oropharynx with no redness, swelling, or masses, exudates, or evidence of obstruction, uvula midline. Mucous membranes moist. Neck: Trachea midline, no thyromegaly or masses palpated, and no cervical lymphadenopathy. Supple, full range of motion without nuchal rigidity, or vertebral point tenderness. No Meningismus. Chest/axilla: Normal chest wall appearance and motion. Nontender with no deformity. No lesions are appreciated. Cardiovascular: Regular rate and rhythm with a normal S1 and S2. No gallops, murmurs, or rubs. Normal PMI, no JVD. No pulse deficits. Positive for right chest wall tenderness no obvious rashes Respiratory: Lungs have equal breath sounds bilaterally, clear to auscultation and percussion. No rales, rhonchi or wheezes noted. No increased work of breathing, no retractions or nasal flaring. Abdomen/GI: Soft, non-tender, with normal bowel sounds. No distension or tympany. No guarding or rebound. No evidence of tenderness throughout. Back: No spinal tenderness. No costovertebral tenderness. Male : Normal genitalia with no discharge or lesions. Skin: Warm, dry with normal turgor. Normal color with no rashes, no lesions, and no evidence of cellulitis. MS/ Extremity: Pulses equal, no cyanosis. Neurovascular intact. Full, normal range of motion. Neuro: Awake and alert, GCS 15, oriented to person, place, time, and situation. Cranial nerves II-XII grossly intact. Motor strength 5/5 in all extremities. Sensory grossly intact. Psych: Awake, alert, with orientation to person, place and time. Behavior, mood, and affect are within normal limits 03:49 ECG was reviewed by the Attending Physician. Normal sinus rhythm at the rate of 74, normal EKG, EKG time 0 338, no ST elevation or depression, no ectopy Vital Signs: 03:42 BP 122 / 87; Pulse 75; Resp 19; Pulse Ox 99% on R/A; kd3 03:50 Temp 98.2(O); Weight 80.74 kg; kd3 05:00 BP 112 / 71; Pulse 60; Resp 16; Pulse Ox 97% on R/A; jb4 06:48 BP 121 / 82; Pulse 55; Resp 16 S; Pulse Ox 99% on R/A; lg3 07:12 BP 120 / 81; Pulse 69; Resp 15; Pulse Ox 100% ; Pain 5/10; ss 08:18 BP 114 / 72; Pulse 57; Resp 15; Pulse Ox 100% on R/A; ss 09:15 BP 116 / 74; Pulse 65; Resp 16; Pulse Ox 98% ; jl7 10:00 BP 114 / 80; Pulse 59; Resp 16; Pulse Ox 96% ; jl7 10:59 BP 105 / 67; Pulse 58; Resp 15; Pulse Ox 97% ; jl7 11:15 BP 105 / 73; Pulse 59; Resp 15; Pulse Ox 99% ; jl7 12:30 BP 106 / 72; Pulse 59; Resp 14; Pulse Ox 97% ; jl7 13:15 BP 110 / 75; Pulse 59; Resp 15; Pulse Ox 98% ; jl7 14:00 BP 113 / 73; Pulse 58; Resp 14; Pulse Ox 94% ; jl7 07:12 Pain Scale: Adult ss MDM: 03:49 Patient medically screened. sp4 08:21 Differential diagnosis: acute myocardial infarction, acute pericarditis, anxiety, sp4 coronary artery disease chest wall pain, congestive heart failure cholecystitis, Cholelithiasis costochondritis. HEART Score: History: Moderately Suspicious (1), ECG: Normal (0), Age: > 45 and < 65 years (1), Risk Factors: No Risk Factors Known (0), Troponin: < or = 1 x Normal Limit (0), Total Score = 2. The patient was given aspirin in the Emergency Department. Data reviewed: vital signs, nurses notes, EMS record, lab test result(s), cardiac enzymes, CBC, electrolytes, hepatic panel, EKG, radiologic studies, CT scan, plain films. Consideration of Admission/Observation Patient was admitted/placed on observation. Escalation of care including admission/observation considered. Management of patient was discussed with the following: Hospitalist: Patient discussed with hospitalist. ED course: At this time patient's work-up is negative but secondary to persistent moderate to severe chest pains patient will be admitted for further work-up. . 08:38 ED course: Chest x-ray revealed no acute cardiopulmonary pathology. sp4 09/03 04:04 Order name: Basic Metabolic Panel; Complete Time: 06:06 EDMS 09/03 04:04 Order name: Liver (Hepatic) Function; Complete Time: 06:06 EDMS 09/03 04:05 Order name: Troponin High Sensitivity; Complete Time: 06:06 EDMS 09/03 04:05 Order name: NT PRO-BNP; Complete Time: 06:06 EDMS 09/03 04:05 Order name: CBC with Automated Diff; Complete Time: 06:06 EDMS 09/03 04:05 Order name: Protime (+INR); Complete Time: 06:06 EDMS 09/03 06:42 Order name: COVID-19 SARS RT PCR; Complete Time: 08:12 4 09/03 12:37 Order name: Creatine Phosphokinase EDID 09/03 12:37 Order name: Magnesium EDID 09/03 12:37 Order name: Phosphorus EDMS 09/03 12:37 Order name: T4 Free EDID 09/03 12:37 Order name: Thyroid Stimulating Hormone EDID 09/03 12:37 Order name: Urinalysis w/ reflexes EDID 09/03 12:39 Order name: Basic Metabolic Panel EDMS 09/03 12:39 Order name: Basic Metabolic Panel EDID 09/03 12:39 Order name: CBC with Automated Diff EDMS 09/03 12:39 Order name: CBC with Automated Diff EDMS 09/03 12:39 Order name: Lipid Profile EDID 09/03 12:39 Order name: Lipid Profile EDMS 09/03 12:49 Order name: Hemoglobin A1c EDID 09/03 03:48 Order name: XRAY Chest (1 view) 4 09/03 06:42 Order name: CT Chest For PE Angio; Complete Time: 10:59 sp4 09/03 12:35 Order name: Echo with Doppler EDMS 09/03 03:48 Order name: EKG; Complete Time: 06:04 4 09/03 11:53 Order name: Diet Heart Healthy: lUNCH; Complete Time: 11:54 09/03 03:48 Order name: Cardiac monitoring; Complete Time: 03:49 sp4 09/03 03:48 Order name: EKG - Nurse/Tech; Complete Time: 03:49 sp4 09/03 03:48 Order name: IV Saline Lock; Complete Time: 03:49 sp4 09/03 03:48 Order name: Labs collected and sent; Complete Time: 03:49 sp4 09/03 03:48 Order name: O2 Per Protocol; Complete Time: 03:49 sp4 09/03 03:48 Order name: O2 Sat Monitoring; Complete Time: 03:49 sp4 EC:49 Rate is 74 beats/min. Rhythm is regular, Normal Sinus Rhythm. QRS [place] is Normal. [place] sp4 interval is normal. QRS interval is normal. QT interval is normal. T waves are Normal. No ST changes noted. Clinical impression: Normal ECG. Interpreted by me. Administered Medications: 04:08 Drug: Aspirin PO Chewable Tablet 324 mg Route: PO; jb4 06:47 Follow up: Response: No adverse reaction lg3 04:08 Drug: morphine IVP or IV 8 mg Route: IVP; Infused Over: 4 mins; Site: right antecubital;jb4 06:47 Follow up: Response: No adverse reaction lg3 04:08 Drug: Ketorolac IVP 30 mg Route: IVP; Site: right antecubital; jb4 06:47 Follow up: Response: No adverse reaction lg3 04:08 Drug: Ondansetron IVP 4 mg Route: IVP; Site: right antecubital; jb4 06:47 Follow up: Response: No adverse reaction lg3 06:53 Drug: morphine IVP or IV 4 mg Route: IVP; Infused Over: 4 mins; Site: right antecubital;jb4 07:20 Follow up: Response: No adverse reaction; Pain is decreased jl7 Disposition Summary: 09/03/22 08:26 Hospitalization Ordered Hospitalization Status: Observation sp4 Provider: Jaime Fay sp4 Location: Telemetry/[facility] (observation) sp4 Condition: Stable sp4 Problem: new sp4 Symptoms: have improved sp4 Bed/Room Type: Standard sp4 Room Assignment: 223(09/03/22 14:02) dw Diagnosis - Chest pain, unspecified sp4 - Atypical chest pain, pleuritic chest pain sp4 Forms: - Medication Reconciliation Form sp4 - SBAR form sp4 Signatures: Dispatcher [employer] EDMS Marcelina Mejia, RN RN dw Aditi Ruiz RN RN ss Jaison Boyd RN RN jb4 Roger Rowe, DO ms3 Stefanie Turk RN RN kd3 Wale Mancera MD MD sp4 Iza Ramsey RN jl7 Ana M Tinajero RN lg3 Corrections: (The following items were deleted from the chart) 06:35 06:04 BASIC METABOLIC PANEL+C.LAB.BRZ ordered. EDMS EDMS 06:35 06:04 CBC+H.LAB.BRZ ordered. EDMS EDMS 06:35 06:04 HEPATIC FUNCTION+C.LAB.BRZ ordered. EDMS EDMS 06:35 06:04 PROBNP+C.LAB.BRZ ordered. EDMS EDMS 06:35 06:04 PROTIME (+INR)+COAG.LAB.BRZ ordered. EDMS EDMS 06:35 06:04 Troponin High Sensitivity+C.LAB.BRZ ordered. EDMS EDMS 14:02 08:26 sp4 dw
--- NOTE | 2022-09-03 10:24 | RAD REPORT ---
EXAM DESCRIPTION: CT - Chest For Pe Angio - 09/03/2022 7:30 am CLINICAL HISTORY: Chest pain. CHEST PAIN COMPARISON: No comparisons TECHNIQUE: CT angiogram of the pulmonary arteries was performed with MIP. All CT scans are performed using dose optimization technique as appropriate and may include automated exposure control or mA/KV adjustment according to patient size. FINDINGS: No evidence of pulmonary thromboembolism. No acute aortic finding demonstrated. Mild interstitial pulmonary edema. No significant pericardial or pleural fluid. No concerning bony finding. IMPRESSION: No evidence of pulmonary thromboembolism. Mild interstitial pulmonary edema.
[2022-09-03] MEDS ORDERED: ACETAMINOPHEN 325 MG TABLET PO PRN (12:29)
[2022-09-03] MEDS ORDERED: ONDANSETRON 4 MG/2 ML VIAL IV PRN (12:35)
--- NOTE | 2022-09-03 12:37 | P.HP ---
Certification for Inpatient Patient admitted to: Observation With expected LOS: <2 Midnights Patient will require the following post-hospital care: None Practitioner: I am a practitioner with admitting privileges, knowledge of patient current condition, hospital course, and medical plan of care. Services: Services provided to patient in accordance with Admission requirements found in Title 42 Section 412.3 of the Code of Federal Regulations Patient History Date of Service: 09/03/22 Reason for admission: Chest pain History of Present Illness: Patient is a 47-year-old male with no known past medical history who presents with complaint of chest pain located in the right chest wall onset 2 days ago. Patient indicated that chest pain radiates to his right shoulder and back. Patient rated pain as 10/10 in severity and described pain as pressure in quality. Patient indicated that chest pain is aggravated with deep breathing and movement of right arm. Patient denies any other signs and symptoms. Patient decided to present to the hospital due to worsening symptoms. Allergies No Known Allergies Allergy (Unverified 08/22/21 07:15) Home Medications: Amox/Clavulanate [Augmentin 875-125 Tab] 875 mg PO BID 12 Days #24 tab 08/24/21 Hydrocodone 5/APAP 325 [[place] 5/325] 1 tab PO Q8H PRN #10 tab 08/24/21 Ondansetron [Zofran] 4 mg PO Q6H PRN #10 tab 08/24/21 - Past Medical/Surgical History Diabetic: No -: Appendectomy Psychosocial/ Personal History: Patient lives at home with his family - Family History Father -: Heart disease, Diabetes Mother -: Diabetes - Social History Smoking Status: Light Tobacco smoker (1-9 cigarettes/day) Counseled patient to stop smoking for: less than 10 minutes Smoking therapy provided: Yes Patient receptive to therapy: Yes Alcohol use: Yes CD- Drugs: No Caffeine use: No Place of Residence: Home Review of Systems General: Unremarkable Eyes: Unremarkable ENT: Unremarkable Respiratory: Unremarkable Cardiovascular: Chest Pain Gastrointestinal: Unremarkable Genitourinary: Unremarkable Musculoskeletal: Shoulder Pain, Back Pain Integumentary: Unremarkable Neurological: Unremarkable Lymphatics: Unremarkable Physical Examination - Physical Exam General: Alert, In no apparent distress, Oriented x3, Cooperative HEENT: Atraumatic, PERRLA, Mucous membr. moist/pink, EOMI, Sclerae nonicteric Neck: Supple, 2+ carotid pulse no bruit, No LAD, Without JVD or thyroid abnormality Respiratory: Clear to auscultation bilaterally, Normal air movement Cardiovascular: No edema, Regular rate/rhythm, Normal S1 S2 Capillary refill: <2 Seconds Gastrointestinal: Normal bowel sounds, Soft and benign, No tenderness Musculoskeletal: No clubbing, No swelling, Tenderness Integumentary: No rashes, No breakdown, No significant lesion Neurological: Normal speech, Normal tone, Normal affect, Abnormal strength Lymphatics: No axilla or inguinal lymphadenopathy - Studies Laboratory Data (last 24 hrs) 09/03/22 03:48: PT Cancelled, INR Cancelled 09/03/22 03:48: WBC Cancelled, Hgb Cancelled, Hct Cancelled, Plt Count Cancelled 09/03/22 03:48: Sodium Cancelled, Potassium Cancelled, BUN Cancelled, Creatinine Cancelled, Glucose Cancelled, Total Bilirubin Cancelled, AST Cancelled, ALT Cancelled, Alkaline Phosphatase Cancelled 09/03/22 03:20: PT 11.2, INR 1.02 09/03/22 03:20: WBC 10.10, Hgb 14.5, Hct 43.0, Plt Count 343 09/03/22 03:20: Sodium 136, Potassium 3.9, BUN 18, Creatinine 0.94, Glucose 106, Total Bilirubin 0.3, AST 22, ALT 60, Alkaline Phosphatase 104 Assessment and Plan - Plan --Chest pain. Likely atypical. Will trend troponin levels--currently negative. Echocardiogram pending to assess cardiac structures and function. Telemetry to monitor for any malignant arrhythmia. Will await further recommendation from clothing pattern preparer. -- Acute pain. We will manage pain with current pain medication regimen. --Mild pulmonary edema. CT chest indicates Mild interstitial pulmonary edema . Patient denies any shortness of breath at this time. Continue supportive care. -- Nicotine dependence. Patient counseled on tobacco cessation. Refuses nicotine patch. -- Class I obesity. Likely secondary to excess calories intake. Patient counseled on weight reduction, diet and excise therapy. --DVT prophylaxis with Lovenox subQ. Discharge Plan: [facility] Plan to discharge in: 48 Hours - Advance Directives Does patient have a Living Will: No Does patient have a Durable POA for Healthcare: No - Code Status/Comfort Care Code Status Assessed: Yes Physician Review: Patient Assessed, Agree with Above Assessment and Plan Critical Care: No
[2022-09-03 14:53] VITALS: BMI 32.5
[2022-09-03] MEDS: IBUPROFEN 400 MG TAB PO SCH ×2 (15:03→20:19)
--- NOTE | 2022-09-03 15:35 | EKG ---
Test Date: 2022-09-03 Test Time: 03:38:44 Office Runner: KRISHAN MEASUREMENT RESULTS: Intervals: Rate: 74 OH: 158 QRSD: 88 QT: 376 QTc: 417 [place]: P: 54 OH: 158 QRS: 54 T: 54 INTERPRETIVE STATEMENTS: Normal sinus rhythm Normal ECG Compared to ECG 12/23/2008 23:42:18 Sinus bradycardia no longer present Myocardial infarct finding no longer present Electronically Signed On 09-03-22 15:34:21 CDT by Thad Jack
--- NOTE | 2022-09-03 15:58 | RAD REPORT ---
EXAM DESCRIPTION: Chest Single View CLINICAL HISTORY: CHEST PAIN COMPARISON: 08/22/2021 FINDINGS: Single frontal radiograph view of the chest. Cardiomediastinal silhouette: Normal size and contour. Leads overlie the chest. Lungs: No consolidation, pneumothorax, or pleural effusion. Low lung volumes. Bones: No acute osseous abnormality. Upper abdomen: No abnormality identified. IMPRESSION: 1. No acute pulmonary process identified. Electronically signed by: Francois Méndez 09/03/2022 6:27 AM CDT Due to temporary technical issues with the PACS/Fluency reporting system, reports are being signed by the in house radiologists without review as a courtesy to insure prompt reporting. The interpreting radiologist is fully responsible for the content of the report.
[2022-09-03] MEDS ORDERED: ENOXAPARIN 40 MG/0.4 ML SQ SCH (17:00)
[2022-09-03 17:22] LABS: Urine Bacteria <20 /HPF (<20); Urine Bilirubin NEGATIVE (Negative); Urine Blood 1+ (Negative); Urine Clarity Clear (Clear); Urine Color Light-Yellow (Yellow); Urine Glucose NEGATIVE (Negative); Urine Mucus 2+ /HPF (None Seen); Urine Protein TRACE (Negative); Urine Urobilinogen Normal (Normal)
[2022-09-03 17:28] LABS: Magnesium 2.3 mg/dL (1.6-2.4); Phosphorus 3.2 mg/dL (2.5-4.9); Thyroid Stimulating Hormone 1.96 uIU/mL (0.358-3.740)
[2022-09-04 04:33] LABS: Absolute Lymphocytes (CBC) 3.5 K/uL (0.7-4.9); Hematocrit 42.4 % (39.6-49.0); Lymphocytes % 44.5 % (15.3-44.8); MCV 92.2 fL (80-100); MPV 8.8 fL (7.6-11.3)
[2022-09-04 05:34] LABS: Potassium 4.2 mEq/L (3.5-5.1)
[2022-09-04] MEDS ORDERED: ASPIRIN 81 MG CHEWABLE TABLET PO SCH (09:00)
[2022-09-04] MEDS ORDERED: REGADENOSON 0.4 MG/5 ML SYR IV ONE (09:00)
[2022-09-04] MEDS: IBUPROFEN 400 MG TAB PO SCH (10:46)
[2022-09-04 11:59] VITALS: O2SAT 98
--- NOTE | 2022-09-04 12:11 | CON ---
Date of Consultation: 09/03/2022 Reason For Consultation: Chest pain. History Of Present Illness: Mr. Robles is a patient, who is really not much in the way of past medical history. Comes in with atypical chest pain, stabbing, left-sided, occasionally pleuritic. No nause a, vomiting, diaphoresis, PND, orthopnea, pedal edema, palpitations, or syncope. So far, NV has been ruled out. EKG is normal. Chest x-ray is normal. Troponin is negative. BNP is negative. Past Medical History: Negative. Allergies: NONE. Medications: No home medicine. Presently, he is taking aspirin and Lovenox. Physical Examination: Vital Signs: Stable, afebrile. HEENT: Negative. Neck: Supple with no bruit. Chest: Clear. Cardiac: Normal. Abdomen: Negative. Extremities: Revealed no clubbing, cyanosis, or edema. Diagnostic Data: Negative. Impression And Plan: Atypical chest pain. Echocardiogram and Lexiscan are pending in the morning. We will see what those shows before he goes home. SAMANTHA/SUMI Voice ID: [id number] Report ID: [id number]
--- NOTE | 2022-09-04 12:56 | RAD REPORT ---
EXAM DESCRIPTION: NM - Rest Stress Cardiac Imaging - 09/04/2022 10:01 am CLINICAL HISTORY: CP Chest pain. COMPARISON: <Comparisons> TECHNIQUE: The patient was administered approximately 10mCi of Tc 99m Sestamibi prior to resting SPE CT imaging of the heart. The patient was then administered approximately 30 mCi of Tc 99m Sestamibi f ollowing exercise or pharmacologic stress. Multiplanar SPECT images were reviewed. FINDINGS: No stress induced ischemic defect is seen to suggest stress induced ischemia. No fixed def ect is seen to suggest hibernating myocardium or scarred myocardium. The end diastolic volume is 72 ml, the end systolic volume is 26 ml, and the ejection fraction is 64 %. IMPRESSION: No stress induced ischemia.
--- NOTE | 2022-09-04 16:00 | EKG ---
Test Date: 2022-09-03 Test Time: 03:40:09 Wet Room Supervisor: KRISHAN MEASUREMENT RESULTS: Intervals: Rate: 75 ID: [id number] QRSD: 86 QT: 376 QTc: 419 [place]: P: 54 ID: [id number] QRS: 57 T: 54 INTERPRETIVE STATEMENTS: Normal sinus rhythm Normal ECG Compared to ECG 09/03/2022 03:38:44 No significant changes Electronically Signed On 09-04-22 15:57:39 CDT by Thad Jack
--- NOTE | 2022-09-04 16:12 | P.DS ---
Admission Date: 09/03/22 Discharge Date: 09/04/22 Disposition: ROUTINE DISCHARGE Discharge Condition: GOOD Reason for Admission: Chest pain Consultations: 1. Cardiology Hospital Course: DIAGNOSES: # Chest Pain - noncardiac # Prediabetes # Hyperlipidemia # Tobacco Use Disorder # Microscopic Hematuria # Obesity - BMI 32.6 kg/m2 HOSPITAL COURSE: Mr. Urban Robles is Croatian-speaking only. The following communication was achieved with the assistance of [employer] certified Croatian-Luxembourger tech writer, Ms. Maria Antonia Joel, (ID# [id number]). Mr. Urban Robles is a pleasant 43 year old male with no reported past medical history who was admitted to the [facility] on 09/03/2022 for chest pain. He was admitted to the Medicine service. His EKG was without STEMI criteria. His troponin trend was 4.4 -> 4.6 -> 4.2. His chest x-ray revealed, "1. No acute pulmonary process identified." His CT chest angiogram revealed, "no evidence of pulmonary thromboembolism." Cardiology was consulted and he was evaluated by Dr. Jack. He recommended a nuclear stress test, which revealed, "no stress induced ischemia." From a cardiology standpoint, Dr. Jack has cleared him for discharge with outpatient follow-up. During his evaluation, he was noted to have prediabetes as well as dyslipidemia. He was counseled on the importance of lifestyle modifications and started on rosuvastatin. He was advised to have his LFTs and lipid panel rechecked in about 1 month. He was advised that this medication adjusted/refilled by his PCP at that point. Incidentally, he was also noted to have microscopic hematuria. He was counseled on the possibility of this representing a urologic malignancy. He was advised to follow-up with his PCP for further evaluation. He verbalized understanding and agreed to make this appointment. On 09/04/2022, he was seen on rounds and deemed medically stable for discharge. He was discharged with instructions to schedule follow-up appointments with his PCP and with Cardiology (Dr. Jack). He was provided a prescription for rosuvastatin. He and his were given the opportunity to ask questions and reported no further questions. Furthermore, all questions were answered to the best of my ability. A copy of this discharge summary will be sent to the above providers to facilitate continuity of care. Today, I personally spent 25 minutes on his case, of which greater than 50% of the time was spent in patient education, counseling, and coordination of care as described above. Vital Signs/Physical Exam: Temp Pulse Resp BP Pulse Ox 97.5 F 68 16 116/59 L 98 09/04/22 12:00 09/04/22 12:00 09/04/22 12:00 09/04/22 12:00 09/04/22 12:00 General: Alert, In no apparent distress, Oriented x3 HEENT: Atraumatic, Mucous membr. moist/pink, EOMI, Sclerae nonicteric Neck: JVD not distended Respiratory: Clear to auscultation bilaterally, Normal air movement Cardiovascular: No edema, Regular rate/rhythm, Normal S1 S2, No gallops, No rubs, No murmurs Gastrointestinal: Normal bowel sounds, Soft and benign, Non-distended, No tenderness, No rebound, No guarding Musculoskeletal: No clubbing Integumentary: No rashes Neurological: Normal speech, Normal affect Laboratory Data at Discharge: WBC 7.80 thou/uL (4.3-10.9) 09/04/22 03:05 Hgb 14.3 g/dL (13.6-17.9) 09/04/22 03:05 Hct 42.4 % (39.6-49.0) 09/04/22 03:05 Plt Count 310 thou/uL (152-406) 09/04/22 03:05 PT Cancelled 09/03/22 03:48 INR Cancelled 09/03/22 03:48 Sodium 135 mEq/L (136-145) L 09/04/22 03:05 Potassium 4.2 mEq/L (3.5-5.1) 09/04/22 03:05 BUN 17 mg/dL (7-18) 09/04/22 03:05 Creatinine 0.95 mg/dL (0.70-1.30) 09/04/22 03:05 Glucose 94 mg/dL (74-106) 09/04/22 03:05 Phosphorus 3.2 mg/dL (2.5-4.9) 09/03/22 16:44 Magnesium 2.3 mg/dL (1.6-2.4) 09/03/22 16:44 Total Bilirubin Cancelled 09/03/22 03:48 AST Cancelled 09/03/22 03:48 ALT Cancelled 09/03/22 03:48 Alkaline Phosphatase Cancelled 09/03/22 03:48 Triglycerides 160 mg/dL (<150) H 09/04/22 03:05 Cholesterol 188 mg/dL (<200) 09/04/22 03:05 HDL Cholesterol 30 mg/dL (40-60) L 09/04/22 03:05 Cholesterol/HDL Ratio 6.27 09/04/22 03:05 Home Medications: Aspirin Chewable [Aspirin Chewable*] 81 mg PO DAILY tab.chew 09/04/22 Rosuvastatin Calcium 5 mg PO BEDTIME #30 tab 09/04/22 New Medications: Rosuvastatin Calcium 5 mg PO BEDTIME #30 tab Physician Discharge Instructions: 1. Please call and schedule a follow-up appointment with your PCP in 3-5 days - Your blood work has returned positive for prediabetes and high cholesterol. You have been started on a new medication called rosuvastatin for your cholesterol. Please have your liver and cholesterol levels checked at your PCP appointment. Please have your PCP adjust/refill this medication as needed - There was a small amount of blood in your urine. This can sometimes be a sign of bladder/kidney cancer. Please follow this up with your PCP for any additional evaluation. 2. Please call and schedule a follow-up appointment with cardiology (Dr. Fisher) in 5-7 days Diet: AHA Activity: Ad lily Followup: Thad Jack MD [ACTIVE - CAN ADMIT] - Time spent managing pt's care (in minutes): 25
[2022-09-04 16:25] VITALS: BP 132/67; TEMP 97.9
--- NOTE | 2022-09-05 07:33 | ECHO ---
HEIGHT: 5 ft 2 in WEIGHT: 178 lb 0 oz DATE OF STUDY: 09/04/[address]: Nirali Toth 2-DIMENSIONAL: YES M.MODE: YES DOPPLER: YES COLOR FLOW: YES TDS: NO PORTABLE: YES DEFINITY: NO BUBBLE STUDY: NO DIAGNOSIS: CHEST PAIN CARDIAC HISTORY: CATHERIZATION: NO SURGERY: NO PROSTHETIC VALVE: NO PACEMAKER: NO MEASUREMENTS (cm) DIASTOLIC (NORMALS) SYSTOLIC (NORMALS) IVSd 0.9 (0.6-1.2) LA Diam 2.6 (1.9-4.0) LVEF 70% LVIDd 4.1 (3.5-5.7) LVIDs 2.5 (2.0-3.5) %FS 39% LVPWd 0.9 (0.6-1.2) Ao Diam 2.4 (2.0-3.7) 2 DIMENSIONAL ASSESSMENT: RIGHT ATRIUM: NORMAL LEFT ATRIUM: NORMAL RIGHT VENTRICLE: NORMAL LEFT VENTRICLE: NORMAL TRICUSPID VALVE: NORMAL MITRAL VALVE: NORMAL PULMONIC VALVE: NORMAL AORTIC VALVE: NORMAL PERICARDIAL EFFUSION: NONE AORTIC ROOT: NORMAL LEFT VENTRICULAR WALL MOTION: NORMAL. DOPPLER/COLOR FLOW: NORMAL. COMMENTS: NORMAL 2D ECHO WITH DOPPLER NO WALL MOTION ABNORMALITY NO EFFUSION TECHNOLOGIST: LV MENDOZA
--- NOTE | 2022-09-05 07:36 | TREADPHA ---
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 PHYSICIAL EXAMINATION: RESTING B.P.: 104/57 RESTING H.R.: 66 RESTING EKG: NORMAL PROTOCOL: LEXISCAN EXERCISE TIME: 3:30 B.P. AT PEAK STRESS: 136/62 IMPRESSION: LEXISCAN INJECTED CARDIOLITE GIVEN PER PROTOCOL. SEE NUCLEAR MEDICINE REPORT. NO SUPRA VENTRICULAR TACHYCARDIA, VENTRICULAR TACHYCARDIA, PREMATURE ATRIAL COMPLEXES OR PREMATURE VENTRICULAR COMPLEXES NOTED. COMPLAINTS OF SHORTNESS OF BREATH. DENIES CHEST PAIN.
== END 2022-09-04 17:48 | disposition home or self-care (01) ==
LOC: ER 03:24 → ERHOLD 12:28 → 2ND 14:20
PROVIDERS: ADMIT Internal Medicine; ATTEND Internal Medicine
DX: R07.9 Chest pain, unspecified (principal); J81.1 Chronic pulmonary edema; F17.210 Nicotine dependence, cigarettes, uncomplicated; E66.9 Obesity, unspecified; E78.5 Hyperlipidemia, unspecified; R31.29 Other microscopic hematuria; R73.03 Prediabetes; Z68.32 Body mass index [BMI] 32.0-32.9, adult; Z71.3 Dietary counseling and surveillance; Z20.822 Contact with and (suspected) exposure to COVID-19
CPT/HCPCS: 36415; 71045; 71275; 78452; 80048; 80061; 80076; 81001; 82550; 83036; 83735; 83880; 84100; 84439; 84443; 84484; 85025; 85610; 93005; 93017; 93306; 96374; 96375; 99285; A9500; G0378; J1650; J2405; J2785; Q9967; U0003

== ENCOUNTER 2023-12-29 21:27 | Emergency (ER) | payer SELFPAY ==
[2023-12-29 21:50] LABS: Absolute Basophils 0.1 K/uL (0-0.5); Absolute Eosinophils 0.5 K/uL (0-0.5); Absolute Lymphocytes (CBC) 4.6 K/uL (0.7-4.9); Absolute Monocytes 0.9 K/uL (0.1-1.3); Basophils % 0.9 % (0-1.3); Eosinophils % 4.2 % (0-4.4); Hematocrit 44.6 % (39.6-49.0); Hemoglobin 14.8 g/dL (13.6-17.9); Lymphocytes % 41.2 % (15.3-44.8); MCH 31.3 pg (27.0-35.0); MCHC 33.3 g/dL (32.0-36.0); MCV 94.1 fL (80-100); MPV 8.4 fL (7.6-11.3); Monocytes % 8.6 % (3.3-12.3); Neutrophils % 45.1 % (41.7-73.7); Platelets 293 thou/uL (152-406); RBC Red Blood Cell Count 4.74 M/uL (4.33-5.43); Red Cell Distribution Width 13.3 % (12.1-15.2)
[2023-12-29 21:55] LABS: PT Prothrombin Time 11.8 SECONDS (9.4-12.5); Protime INR 1.06
--- NOTE | 2023-12-29 21:57 | RAD REPORT ---
EXAM DESCRIPTION: RAD - Chest Single View - 12/29/2023 9:40 pm CLINICAL HISTORY: CHEST PAIN COMPARISON: Chest Single View dated 09/03/2022; Chest Single View dated 08/22/2021; CHEST SINGLE VIEW d ated 12/23/2008 FINDINGS: Lines: None. Lungs: No evidence of edema or pneumonia. Pleural: No significant pleural effusions or pneumothorax. Cardiac: The heart size is within normal limits. Mediastinum: Within normal limits. Bones: No acute fractures. Other: None IMPRESSION: No acute cardiopulmonary disease.
[2023-12-29] MEDS ORDERED: KETOROLAC 30 MG/ML INJ ONE (22:00)
[2023-12-29] MEDS ORDERED: MORPHINE 4 MG/ML SYR ONE (22:00)
[2023-12-29 22:21] LABS: Anion Gap 11.6 mEq/L (5.0-15.0); Potassium 3.6 mEq/L (3.5-5.1); Troponin High Sensitivity 3.2 pg/mL (<58.9)
--- NOTE | 2023-12-29 22:39 | ER ---
[facility]urse's Notes [facility] Name: Urban Robles Age: 48 yrs Sex: Male : 1975 Arrival Date: 12/29/2023 Time: 21:27 Bed 7 Private MD: Diagnosis: Chest pain, unspecified Presentation: 12/28 21:34 Chief complaint: Patient states: chest and epigastric pain that started around 4pm. cp4 States he took tylenol for the pain at 1800. Coronavirus screen: Client denies travel out of the [place] in the last 14 days. At this time, the client does not indicate any symptoms associated with coronavirus-19. Ebola Screen: Patient negative for fever greater than or equal to 101.5 degrees Fahrenheit, and additional compatible Ebola Virus Disease symptoms Patient denies exposure to infectious person. Patient denies travel to an Ebola-affected area in the 21 days before illness onset. No symptoms or risks identified at this time. Initial Sepsis Screen: Does the patient meet any 2 criteria? No. Patient's initial sepsis screen is negative. Does the patient have a suspected source of infection? No. Patient's initial sepsis screen is negative. Risk Assessment: Do you want to hurt yourself or someone else? Patient reports no desire to harm self or others. Onset of symptoms was December 29, 2023. 21:34 Method Of Arrival: Ambulatory 4 21:34 Acuity: GUSTAVO 3 cp4 Triage Assessment: 21:35 General: Appears uncomfortable, Behavior is calm, cooperative, appropriate for age. cp4 Pain: Complains of pain in chest Pain currently is 10 out of 10 on a pain scale. Cardiovascular: Patient's skin is warm and dry. Historical: - Allergies: 21:35 No Known Allergies; cp4 - PSHx: 21:35 Appendectomy; cp4 - Immunization history:: Adult Immunizations up to date. - Infectious Disease History:: Denies. - Social history:: Smoking status: Patient reports the use of cigarette tobacco products, smokes one-half pack cigarettes per day. Screenin:44 [facility] ED Fall Risk Assessment (Adult) History of falling in the last 3 months, al5 including since admission No falls in past 3 months (0 pts) Confusion or Disorientation No (0 pts) Intoxicated or Sedated No (0 pts) Impaired Gait No (0 pts) Mobility Assist Device Used No (0 pt) Altered Elimination No (0 pt) Score/Fall Risk Level 0 - 2 = Low Risk Oriented to surroundings, Maintained a safe environment, Hourly rounding (assess needs \T\ fall precautionary measures) done. Abuse screen: Denies threats or abuse. Denies injuries from another. Nutritional screening: No deficits noted. Tuberculosis screening: No symptoms or risk factors identified. Assessment: 21:45 General: Appears in no apparent distress. Behavior is calm, cooperative. Pain: al5 Complains of pain in chest and epigastric area Pain does not radiate. Pain currently is 10 out of 10 on a pain scale. Pain began 5 hours ago. Neuro: Level of Consciousness is awake, alert, obeys commands, Oriented to person, place, time, situation. Cardiovascular: Reports chest pain, Capillary refill < 3 seconds Patient's skin is warm and dry. Rhythm is sinus rhythm. Respiratory: Airway is patent Respiratory effort is even, unlabored, Respiratory pattern is regular, symmetrical. GI: Reports epigastric pain. : No signs and/or symptoms were reported regarding the genitourinary system. EENT: No signs and/or symptoms were reported regarding the EENT system. Derm: Skin is intact, Skin is pink, warm \T\ dry. normal. Musculoskeletal: No signs and/or symptoms reported regarding the musculoskeletal system. 22:45 Reassessment: Patient appears in no apparent distress at this time. Patient and/or al5 family updated on plan of care and expected duration. Pain level reassessed. Patient is alert, oriented x 3, equal unlabored respirations, skin warm/dry/pink. Patient states feeling better. Patient states symptoms have improved. Vital Signs: 21:30 BP 128 / 80; Pulse 69; Resp 16; Pulse Ox 97% on R/A; al5 21:34 BP 131 / 87; Pulse 65; Resp 18; Temp 98.1; Pulse Ox 99% ; Pain 10/10; cp4 21:45 BP 156 / 95; Pulse 16; Resp 67; Pulse Ox 98% on R/A; al5 22:00 BP 126 / 89; Pulse 62; Resp 16; Pulse Ox 97% on R/A; al5 22:15 BP 123 / 84; Pulse 57; Resp 16; Pulse Ox 95% on R/A; al5 22:30 BP 121 / 88; Pulse 58; Resp 16; Pulse Ox 98% on R/A; al5 22:45 BP 122 / 83; Pulse 56; Resp 16; Pulse Ox 98% on R/A; al5 21:34 Pain Scale: Adult cp4 ED Course: 21:34 Patient arrived in ED. cp4 21:34 Isak Villalta MD is Attending Physician. ec2 21:35 Triage completed. cp4 21:36 Arm band placed on right wrist. Patient placed in waiting room. cp4 21:42 XRAY Chest (1 view) In Process Unspecified. EDMS 21:44 Susanne Jorge, RN is Primary Nurse. al5 21:44 Patient has correct armband on for positive identification. Bed in low position. Call al5 light in reach. Side rails up X 1. Provided Education on: processes and procedures. Client placed on continuous cardiac and pulse oximetry monitoring. NIBP monitoring applied. school lunch monitor on. 21:44 No provider procedures requiring assistance completed. Inserted saline lock: 20 gauge al5 in right antecubital area, using aseptic technique. Patient maintains SpO2 saturation greater than 95% on room air. 23:06 IV discontinued, intact, bleeding controlled, No redness/swelling at site. Pressure al5 dressing applied. Administered Medications: 22:05 Drug: Ketorolac IVP 15 mg IVP once Route: IVP; Site: right antecubital; bm8 22:29 Follow up: Response: No adverse reaction; Pain is decreased al5 22:05 Drug: morphine IVP or IV 4 mg IVP once over 4 mins Route: IVP; Infused Over: 4 mins; bm8 Site: right antecubital; 22:29 Follow up: Response: No adverse reaction; Pain is decreased al5 Medication: 21:44 VIS not applicable for this client. al5 Outcome: 22:38 Discharge ordered by . ec2 23:06 Discharged to home ambulatory, with family, al5 23:06 Condition: good 23:06 Discharge instructions given to patient, family, Instructed on discharge instructions, follow up and referral plans. medication usage, Demonstrated understanding of instructions, follow-up care, medications, Prescriptions given X 1, 23:07 Patient left the ED. al5 Signatures: Dispatcher [facility] Isak Villalta MD MD ec2 Sue Sosa cp4 Phill Ortiz, RN RN bm8 Susanne Jorge, RN RN al5
--- NOTE | 2023-12-29 22:39 | EDPHYS ---
Physician Documentation [facility] Name: Urban Robles Age: 48 yrs Sex: Male : 1975 Arrival Date: 12/29/2023 Time: 21:27 Bed 7 Private MD: ED Physician Isak Villalta HPI: 12/28 21:53 This 48 yrs old Male presents to ER via Ambulatory with complaints of Chest ec2 Pain. 21:53 Patient arrives today for left-sided chest pain. Patient reports chest pain onset was ec2 approximately 6 hours ago. Patient reports no specific alleviating or exacerbating factors. Patient reports no difficulty breathing, no nausea or vomiting. States that the pain is worse with pressing on the area. No significant medical problems, no daily medications. 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 . Historical: - Allergies: 21:35 No Known Allergies; cp4 - PSHx: 21:35 Appendectomy; cp4 - Immunization history:: Adult Immunizations up to date. - Infectious Disease History:: Denies. - Social history:: Smoking status: Patient reports the use of cigarette tobacco products, smokes one-half pack cigarettes per day. ROS: 21:53 Constitutional: as per hpi ec2 Exam: 21:37 ECG was reviewed by the Attending Physician. ec2 21:53 Constitutional: GEN: NAD Head: atraumatic Eyes: EOMI Ears: External ears are ec2 normal. CV: regular rate LUNGS: no respiratory distress ABD: non-distended SKIN: no evidence of rashes MSK: no evidence of trauma. Reproducible left chest wall TTP without deformities or crepitus appreciated. Vital Signs: 21:30 BP 128 / 80; Pulse 69; Resp 16; Pulse Ox 97% on R/A; al5 21:34 BP 131 / 87; Pulse 65; Resp 18; Temp 98.1; Pulse Ox 99% ; Pain 10/10; cp4 21:45 BP 156 / 95; Pulse 16; Resp 67; Pulse Ox 98% on R/A; al5 22:00 BP 126 / 89; Pulse 62; Resp 16; Pulse Ox 97% on R/A; al5 22:15 BP 123 / 84; Pulse 57; Resp 16; Pulse Ox 95% on R/A; al5 22:30 BP 121 / 88; Pulse 58; Resp 16; Pulse Ox 98% on R/A; al5 22:45 BP 122 / 83; Pulse 56; Resp 16; Pulse Ox 98% on R/A; al5 21:34 Pain Scale: Adult cp4 MDM: 21:34 Patient medically screened. ec2 21:37 ED course: EKG independently reviewed and interpreted by me, shows normal sinus rhythm, ec2 rate of 63, no acute ST segment elevations, intervals are nonconcerning.. 21:53 Data reviewed: vital signs. ED course: Patient arrives today for left chest pain. ec2 Examination remarkable for chest findings as above. Will obtain lab work, chest x-ray. Will give the patient morphine as well as Toradol for pain. Differential includes costochondritis, ACS, doubt PE or dissection . 22:01 ED course: CBC is reassuring. Chest x-ray shows no acute intrathoracic process. . ec2 22:30 ED course: Metabolic profile is reassuring, troponin within normal ranges. . ec2 22:38 ED course: On reassessment patient with marked improvement in symptoms. Suspect ec2 musculoskeletal pain. Return precautions given.. 09 21:34 Order name: Basic Metabolic Panel; Complete Time: 22:30 ec2 12/28 21:34 Order name: CBC with Diff; Complete Time: 22:01 ec2 / 21:34 Order name: PT-INR; Complete Time: 22:01 ec2 12/28 21:34 Order name: Troponin HS; Complete Time: 22:30 ec2 12/28 21:34 Order name: XRAY Chest (1 view); Complete Time: 22:01 ec2 / 21:34 Order name: EKG; Complete Time: 21:35 ec2 12/28 21:34 Order name: Cardiac monitoring; Complete Time: 21:47 ec2 12/28 21:34 Order name: EKG - Nurse/Tech; Complete Time: 21:47 ec2 12/28 21:34 Order name: IV Saline Lock; Complete Time: 21:47 ec2 12/28 21:34 Order name: Labs collected and sent; Complete Time: 21:47 ec2 12/28 21:34 Order name: O2 Per Protocol; Complete Time: 21:47 ec2 12/28 21:34 Order name: O2 Sat Monitoring; Complete Time: 21:47 ec2 Administered Medications: 22:05 Drug: Ketorolac IVP 15 mg IVP once Route: IVP; Site: right antecubital; bm8 22:29 Follow up: Response: No adverse reaction; Pain is decreased al5 22:05 Drug: morphine IVP or IV 4 mg IVP once over 4 mins Route: IVP; Infused Over: 4 mins; bm8 Site: right antecubital; 22:29 Follow up: Response: No adverse reaction; Pain is decreased al5 Disposition Summary: 12/29/23 22:38 Discharge Ordered Notes: Location: Home ec2 Condition: Stable ec2 Diagnosis - Chest pain, unspecified ec2 Followup: ec2 - With: Private Physician - When: - Reason: Re-evaluation by your physician Discharge Instructions: - Discharge Summary Sheet ec2 - Nonspecific Chest Pain, Adult, [id number] ec2 Forms: - Medication Reconciliation Form ec2 - Antibiotic Education ec2 - Prescription Opioid Use ec2 - Patient Portal Instructions ec2 - Leadership Thank You Letter ec2 Prescriptions: - methocarbamol 500 mg Oral tablet - take 2 tablets ORAL route 4 times per day; 20 tablet; Refills: 0, Product ec2 Selection Permitted Signatures: Dispatcher [employer] EDMS Isak Villalta MD MD ec2 Sue Sosa 4 Phill Ortiz RN RN bm8 Susanne Jorge RN al5 Corrections: (The following items were deleted from the chart) 21:55 21:53 Patient arrives today for left-sided chest pain. Patient reports chest pain onset ec2 was approximately 6 hours ago. Patient reports no specific alleviating or exacerbating factors. Patient reports no difficulty breathing, no nausea or vomiting. States that the pain is worse with pressing on the area. No significant medical problems, no daily medications. No allergies.. ec2
[2023-12-29 23:15] VITALS: TEMP 98.1
[2023-12-29 23:20] VITALS: O2SAT 98
[2023-12-29 23:21] VITALS: BP 122/83
--- NOTE | 2023-12-30 12:36 | EKG ---
Test Date: 2023-12-29 Test Time: 21:34:39 Stereotype Finisher: NASIR MEASUREMENT RESULTS: Intervals: Rate: 63 MO: 150 QRSD: 86 QT: 400 QTc: 409 [place]: P: 38 MO: 150 QRS: 65 T: 37 INTERPRETIVE STATEMENTS: Normal sinus rhythm Normal ECG Compared to ECG 09/03/2022 03:40:09 No significant changes Electronically Signed On 12-30-23 12:35:20 CDT by Donnie Mario
== END 2023-12-29 23:07 | disposition home or self-care (01) ==
LOC: ER 21:27
DX: R07.89 Other chest pain (principal); F17.210 Nicotine dependence, cigarettes, uncomplicated
CPT/HCPCS: 93005; 96374; 96375; 99285

== ENCOUNTER 2024-05-22 22:32 | Emergency (ER) | payer SELFPAY ==
[2024-05-22] MEDS ORDERED: KETOROLAC 30 MG/ML INJ ONE (22:56)
[2024-05-22] MEDS ORDERED: HYDROCODONE/APAP 7.5/325 MG TAB ONE (22:57)
--- NOTE | 2024-05-22 23:36 | RAD REPORT ---
EXAM: Foot Left 3 View CLINICAL INDICATION: 49-year-old male with pain. TECHNIQUE: Three views LEFT foot were obtained in AP, lateral and oblique projections COMPARISON: None. FINDINGS: There is no fracture or dislocation. The joint spaces are preserved. No soft tissue abnor malities are seen. IMPRESSION: No acute radiographic abnormality. Electronically signed by: Justina Wise MD 05/22/2024 11:20 PM [facility] Due to temporary technical issues with the PACS/[facility] reporting system, reports are being franky d by the in-house radiologist without review as a courtesy to ensure prompt reporting the interpreting radiologist is fully responsible for the content of the report. Transcribed Date/Time: 05/22/2024 11:36 PM
--- NOTE | 2024-05-23 00:42 | ER ---
Nurse's Notes [facility] Name: Urban Robles Age: 49 yrs Sex: Male : 1975 Arrival Date: 05/22/2024 Time: 22:32 Bed 5 Private MD: Diagnosis: Pain in left foot;Pain in left lower leg Presentation: 05/22 22:51 Chief complaint: Patient states: left foot pain radiating to left calf X3 hours. denies lg3 injury. 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 Coronavirus screen: Client denies travel out of the [place] in the last 14 days. At this time, the client does not indicate any symptoms associated with coronavirus-19. Ebola Screen: No symptoms or risks identified at this time. Initial Sepsis Screen: Does the patient meet any 2 criteria? No. Patient's initial sepsis screen is negative. Does the patient have a suspected source of infection? No. Patient's initial sepsis screen is negative. Risk Assessment: Do you want to hurt yourself or someone else? Patient reports no desire to harm self or others. Onset of symptoms was May 22, 2024. 22:51 Method Of Arrival: Wheelchair lg3 22:51 Acuity: GUSTAVO 4 lg3 Triage Assessment: 22:53 General: Appears in no apparent distress. uncomfortable, Behavior is calm, cooperative. lg3 Pain: Complains of pain in left foot Pain radiates to left calf. EENT: No deficits noted. No signs and/or symptoms were reported regarding the EENT system. Neuro: No deficits noted. Soliz Agitation-Sedation Scale (RASS): 0 - Alert and Calm Level of Consciousness is awake, alert, obeys commands, Oriented to person, place, time, situation. Cardiovascular: No deficits noted. Denies chest pain, shortness of breath, Capillary refill < 3 seconds Clubbing of nail beds is absent JVD is absent Patient's skin is warm and dry. Respiratory: No deficits noted. Airway is patent Respiratory effort is even, unlabored, Respiratory pattern is regular, symmetrical. GI: No deficits noted. No signs and/or symptoms were reported involving the gastrointestinal system. : No signs and/or symptoms were reported regarding the genitourinary system. Derm: No deficits noted. No signs and/or symptoms reported regarding the dermatologic system. Skin is intact, is healthy with good turgor, Skin is dry, Skin is normal, Skin temperature is warm. Musculoskeletal: Circulation, motion, and sensation intact. Range of motion: intact in all extremities, Reports pain in left foot. Historical: - Allergies: 22:53 No Known Allergies; lg3 - Home Meds: 22:53 None [Active]; lg3 - PMHx: 22:53 None; lg3 - PSHx: 22:53 Appendectomy; lg3 - Immunization history:: Adult Immunizations up to date. - Infectious Disease History:: Denies. - Social history:: Smoking status: Patient denies any tobacco usage or history of. Patient/guardian denies using alcohol, street drugs. Screenin:00 [facility] ED Fall Risk Assessment (Adult) History of falling in the last 3 months, ha1 including since admission No falls in past 3 months (0 pts) Confusion or Disorientation No (0 pts) Intoxicated or Sedated No (0 pts) Impaired Gait No (0 pts) Mobility Assist Device Used Yes (1 pt) Altered Elimination No (0 pt) Score/Fall Risk Level 0 - 2 = Low Risk Oriented to surroundings, Maintained a safe environment, Educated pt \T\ family on fall prevention, incl call for assistance when getting out of bed, Hourly rounding (assess needs \T\ fall precautionary measures) done. Abuse screen: Denies threats or abuse. Denies injuries from another. Nutritional screening: No deficits noted. Tuberculosis screening: No symptoms or risk factors identified. Assessment: 23:00 General: Appears uncomfortable, Behavior is cooperative. Pain: Complains of pain in ha1 left foot Pain does not radiate. Pain currently is 8 out of 10 on a pain scale. Quality of pain is described as aching. Neuro: Level of Consciousness is awake, alert, obeys commands, Oriented to person, place, time, situation. Cardiovascular: Capillary refill < 3 seconds Patient's skin is warm and dry. Respiratory: Airway is patent Respiratory effort is even, unlabored, Respiratory pattern is regular, symmetrical. GI: No signs and/or symptoms were reported involving the gastrointestinal system. Derm: Skin is pink, warm \T\ dry. Musculoskeletal: Reports pain in left foot. 05/23 00:00 Reassessment: Patient and/or family updated on plan of care and expected duration. Pain ha1 level reassessed. Patient is alert, oriented x 3, equal unlabored respirations, skin warm/dry/pink. Patient states feeling better. Patient states symptoms have improved. Vital Signs: 05/22 22:51 BP 148 / 89; Pulse 86; Resp 16 S; Temp 98.4(O); Pulse Ox 97% on R/A; Weight 72.57 kg lg3 (R); Height 5 ft. 4 in. (R); Pain 6/10; 05/23 00:00 BP 117 / 68; Pulse 85; Resp 17; Pulse Ox 97% on R/A; ha1 01:00 BP 107 / 71; Pulse 70; Resp 17 S; Pulse Ox 98% on R/A; ha1 05/22 22:51 Body Mass Index 27.46 (72.57 kg, 162.56 cm) lg3 05/22 22:51 Pain Scale: Adult lg3 ED Course: 05/22 22:36 Patient arrived in ED. im 22:36 Minh Castellon PA is PHCP. cp 22:36 Minh Brooks MD is Attending Physician. cp 22:53 Triage completed. lg3 22:53 Arm band placed on right wrist. lg3 23:00 Patient has correct armband on for positive identification. Placed in gown. Bed in low ha1 position. Call light in reach. Side rails up X 1. 23:00 Provided Education on: plan of care . ha1 23:01 XRAY Foot LEFT 3 View In Process Unspecified. EDMS 05/23 00:26 US Extremity Venous Unilateral Ltd In Process Unspecified. EDMS 00:26 Lower Extremity Artery Uni Ltd US In Process Unspecified. EDMS 01:00 No provider procedures requiring assistance completed. ha1 01:00 Patient did not have IV access during this emergency room visit. ha1 Administered Medications: 05/22 23:02 Drug: Ketorolac IM 30 mg IM once Route: IM; Site: right deltoid; ha1 23:40 Follow up: Response: No adverse reaction; Marked relief of symptoms; Pain is decreased ha1 23:02 Drug: Hydrocodone-Acetaminophen PO (7.5 mg-325 mg) 1 tabs PO once; RASS on ADMIN: ha1 Combtv4, Very Agttd3, Agttd2, Rstlss1, AlertClm0, Drwsy-1, Lt Sdtn-2, Mod Sdtn-3, Dp Sdtn-4, UnArsble-5 Route: PO; 23:40 Follow up: Response: No adverse reaction; Marked relief of symptoms ha1 Medication: 05/23 00:00 VIS not applicable for this client. ha1 Outcome: 00:41 Discharge ordered by . cp 01:10 Discharged to home via wheelchair, with family, ha1 01:10 Condition: stable 01:10 Discharge instructions given to patient, family, Instructed on discharge instructions, follow up and referral plans. medication usage, Demonstrated understanding of instructions, follow-up care, medications, Prescriptions given X 1, 01:10 Patient left the ED. ha1 Signatures: Dispatcher [employer] EDMS Minh Castellon PA PA cp Able, Lacie, RN RN lg3 Kelle Burns RN RN ha1 Susi Ho Corrections: (The following items were deleted from the chart) 01:42 01:42 Patient left the ED. ha1 ha1
--- NOTE | 2024-05-23 00:42 | EDPHYS ---
Physician Documentation [facility] Name: Urban Robles Age: 49 yrs Sex: Male : 1975 Arrival Date: 05/22/2024 Time: 22:32 Bed 5 Private MD: ED Physician Minh Brooks HPI: 05/22 22:55 This 49 yrs old Male presents to ER via Wheelchair with complaints of Leg Pain cp - left. 22:55 The patient presents with pain, that is acute. The complaints affect the left foot. cp Context: resulted from an unknown cause, the patient can fully bear weight, the patient is able to ambulate, with moderate difficulty, Problem is a result from a previous injury: No. Onset: The symptoms/episode began/occurred 1 hour(s) ago. Associated signs and symptoms: Pertinent positives: calf tenderness, radiating pain to left lower leg, Pertinent negatives fever, warmth. Treatment prior to arrival includes: over the counter medications, Tylenol. Historical: - Allergies: 22:53 No Known Allergies; lg3 - Home Meds: 22:53 None [Active]; lg3 - PMHx: 22:53 None; lg3 - PSHx: 22:53 Appendectomy; lg3 - Immunization history:: Adult Immunizations up to date. - Infectious Disease History:: Denies. - Social history:: Smoking status: Patient denies any tobacco usage or history of. Patient/guardian denies using alcohol, street drugs. ROS: 23:00 Constitutional: Negative for body aches, chills, fever, cp 23:00 Eyes: Negative for injury, pain, redness, and discharge, cp 23:00 ENT: Negative for drainage from ear(s), ear pain, sore throat, difficulty swallowing, difficulty handling secretions, 23:00 Cardiovascular: Negative for chest pain, palpitations, 23:00 Respiratory: Negative for cough, shortness of breath, wheezing, 23:00 Abdomen/GI: Negative for abdominal pain, nausea, vomiting, and diarrhea, 23:00 Back: Negative for pain at rest, pain with movement, 23:00 MS/extremity: Positive for pain, tenderness, of the left calf and left foot and left lower leg, Negative for injury or acute deformity, decreased range of motion, 23:00 Neuro: Negative for numbness, 23:00 All other systems are negative, Exam: 23:05 Constitutional: The patient appears in no acute distress, alert, awake, non-toxic, well cp developed, well nourished, uncomfortable, 23:05 Head/Face: Normocephalic, atraumatic. cp 23:05 Eyes: Periorbital structures: appear normal, Conjunctiva: normal, no exudate, no injection, Sclera: no appreciated abnormality, Lids and lashes: appear normal, bilaterally, 23:05 ENT: External ear(s): are unremarkable, Nose: is normal, Mouth: Lips: moist, Oral mucosa: moist, Posterior pharynx: Airway: no evidence of obstruction, patent, 23:05 Chest/axilla: Inspection: normal, 23:05 Cardiovascular: Rate: normal, Rhythm: regular, Pulses: Pulses are 2+ in left dorsalis pedis artery. Edema: is not appreciated, JVD: is not appreciated, 23:05 Respiratory: the patient does not display signs of respiratory distress, Respirations: normal, no use of accessory muscles, no retractions, labored breathing, is not present, Breath sounds: are clear throughout, no decreased breath sounds, no stridor, no wheezing, 23:05 Abdomen/GI: Inspection: abdomen appears normal, 23:05 Back: pain, is absent, ROM is normal, 23:05 Musculoskeletal/extremity: Extremities: noted in the left calf and left foot and left lower leg: pain, tenderness, There is no evidence of decreased ROM, deformity, erythema, swelling, Vital Signs: 22:51 BP 148 / 89; Pulse 86; Resp 16 S; Temp 98.4(O); Pulse Ox 97% on R/A; Weight 72.57 kg lg3 (R); Height 5 ft. 4 in. (R); Pain 6/10; 05/23 00:00 BP 117 / 68; Pulse 85; Resp 17; Pulse Ox 97% on R/A; ha1 01:00 BP 107 / 71; Pulse 70; Resp 17 S; Pulse Ox 98% on R/A; ha1 05/22 22:51 Body Mass Index 27.46 (72.57 kg, 162.56 cm) 3 05/22 22:51 Pain Scale: Adult [facility] MDM: 05/22 22:47 Medical Screening Exam initiated phu 22:50 Medical Screening Exam initiated phu 23:00 Differential diagnosis: contusion, sprain, cellulitis, gout. 05/23 00:40 Data reviewed: vital signs, nurses notes, radiologic studies, plain films, ultrasound, cp and as a result, I will discharge patient. 00:40 I considered the following discharge prescriptions or medication management in the emergency department Medications were administered in the Emergency Department. See MAR. Independent interpretation of the following test(s) in the Emergency Department X-Ray: My interpretation is images of left foot negative for fracture. Counseling: I had a detailed discussion with the patient and/or guardian regarding the historical points, exam findings, and any diagnostic results supporting the discharge/admit diagnosis, radiology results, to return to the emergency department if symptoms worsen or persist or if there are any questions or concerns that arise at home. Response to treatment: the patient's symptoms have mildly improved after treatment, and as a result, I will discharge patient. 05/22 22:52 Order name: XRAY Foot LEFT 3 View 05/23 00:31 Interpretation: Reviewed report. 05/22 22:52 Order name: US Extremity Venous Unilateral Ltd 05/23 01:27 Interpretation: Report reviewed. 05/22 22:52 Order name: Lower Extremity Artery Uni Ltd [facility] 05/23 00:39 Order name: Crutches; Complete Time: 01:35 05/23 00:39 Order name: Simon wrap-joint; Complete Time: 01:35 cp Administered Medications: 05/22 23:02 Drug: Ketorolac IM 30 mg IM once Route: IM; Site: right deltoid; ha1 23:40 Follow up: Response: No adverse reaction; Marked relief of symptoms; Pain is decreased ha1 23:02 Drug: Hydrocodone-Acetaminophen PO (7.5 mg-325 mg) 1 tabs PO once; RASS on ADMIN: ha1 Combtv4, Very Agttd3, Agttd2, Rstlss1, AlertClm0, Drwsy-1, Lt Sdtn-2, Mod Sdtn-3, Dp Sdtn-4, UnArsble-5 Route: PO; 23:40 Follow up: Response: No adverse reaction; Marked relief of symptoms ha1 Disposition Summary: 05/23/24 00:41 Discharge Ordered Notes: Location: Home cp Problem: new cp Symptoms: have improved cp Condition: Stable cp Diagnosis - Pain in left foot cp - Pain in left lower leg cp Followup: cp - With: Private Physician - When: 2 - 3 days - Reason: Worsening of condition Discharge Instructions: - Discharge Summary Sheet cp - Musculoskeletal Pain cp - Foot Pain cp Forms: - Medication Reconciliation Form cp - Antibiotic Education cp - Prescription Opioid Use cp - Patient Portal Instructions cp - Leadership Thank You Letter cp Prescriptions: - Diclofenac Sodium 75 mg Oral Tablet Sustained Release - take 1 tablet ORAL route 2 times per day; 30 tablet; Refills: 0, Product cp Selection Permitted Addendum: 05/25/2024 14:17 Co-signature as Attending Physician, Minh Brooks MD I agree with the assessment and c gomez plan of care. Signatures: Dispatcher [employer] Minh Patricio MD MD cha Page, Corey, PA Ana M Maki cp, RN RN lg3 Kelle Burns, RN RN ha1 Corrections: (The following items were deleted from the chart) 05/22 22:53 22:52 Foot Left 3 View+[email or web address] ordered. DONN POP
--- NOTE | 2024-05-23 00:58 | RAD REPORT ---
EXAM: US Duplex Left Lower Extremity Veins CLINICAL HISTORY: The patient is 49 years old and is Male; PAIN TECHNIQUE: Real-time duplex ultrasound scan of the left lower extremity veins integrating B-mode two-dimension al vascular structure, Doppler spectral analysis, color flow Doppler imaging and compression. COMPARISON: No relevant prior studies available. FINDINGS: DEEP VEINS: Unremarkable. No DVT in the visualized common femoral, femoral, proximal deep femor al, popliteal, posterior tibial veins. The veins demonstrate normal color flow, are normally compressible, with normal phasic flow and/or augmentation response. SUPERFICIAL VEINS: Unremarkable. No thrombus in the visualized great saphenous vein. SOFT TISSUES: No acute findings. No popliteal cyst. IMPRESSION: Normal left lower extremity duplex venous ultrasound. Electronically signed by: Melvi Brand MD 05/23/2024 12:53 AM [facility] Due to temporary technical issues with the PACS/Power scribe reporting system, reports are being sign ed by the in-house radiologist without review as a courtesy to ensure prompt reporting the interpreting rad iologist is fully responsible for the content of the report. Transcribed Date/Time: 05/23/2024 12:58 AM
--- NOTE | 2024-05-23 01:00 | RAD REPORT ---
EXAM: US Duplex Left Lower Extremity Arteries CLINICAL HISTORY: The patient is 49 years old and is Male; PAIN TECHNIQUE: Real-time duplex ultrasound scan of the left lower extremity arteries integrating B-mode two-dimens ional vascular structure, Doppler spectral analysis and color flow Doppler imaging. COMPARISON: No relevant prior studies available. FINDINGS: LEFT COMMON FEMORAL ARTERY: No acute findings. Normal waveform. Peak systolic velocity in the left common femoral artery is 70.8 cm/s. LEFT SUPERFICIAL FEMORAL ARTERY: No acute findings. Normal waveform. Peak systolic velocity i n the left superficial femoral artery is 80.9 cm/s. LEFT POPLITEAL ARTERY: No acute findings. Normal waveform. Peak systolic velocity in the left popliteal artery is 65.8 cm/s. LEFT CALF/FOOT ARTERIES: Peak systolic velocity in the left posterior tibial artery is 101.3 cm/s a nd in the left dorsalis pedis artery is 113 cm/s. Normal waveform. SOFT TISSUES: Unremarkable. IMPRESSION: No acute findings in the left lower extremity arteries. Electronically signed by: Melvi Brand MD 05/23/2024 12:56 AM [facility] Due to temporary technical issues with the PACS/Power scribe reporting system, reports are being sign ed by the in-house radiologist without review as a courtesy to ensure prompt reporting the interpreting rad iologist is fully responsible for the content of the report. Transcribed Date/Time: 05/23/2024 1:00 AM
[2024-05-23 04:09] VITALS: TEMP 98.4
[2024-05-23 04:12] VITALS: BP 107/71; O2SAT 98
== END 2024-05-23 01:42 | disposition home or self-care (01) ==
LOC: ER 22:32
DX: M79.672 Pain in left foot (principal); M79.662 Pain in left lower leg
CPT/HCPCS: 93926; 93971; 96372; 99284